=== PATIENT | male | born 1950 | race Caucasian/White ===

== ENCOUNTER → 2023-11-14 11:12 | Outpatient (REF) | payer MEDICARE, OTHER, SELFPAY | LOC: RAD 11:12 | PROVIDERS: ATTENDING PHYSICIAN Family Medicine | DX: S29.9XXA Unspecified injury of thorax, initial encounter (principal) | CPT/HCPCS: 71101 ==

== ENCOUNTER → 2024-03-31 07:10 | Outpatient (REF) | payer MEDICARE, OTHER, SELFPAY | LOC: DHCBC/DCA 07:10 | PROVIDERS: ATTENDING PHYSICIAN Internal Medicine Cardiovascular Disease; FAMILY PHYSICIAN Family Medicine | DX: R06.09 Other forms of dyspnea (principal); I51.7 Cardiomegaly; E11.65 Type 2 diabetes mellitus with hyperglycemia | CPT/HCPCS: 78452; 93017; A9500; J2785 ==

== ENCOUNTER → 2025-04-06 09:42 | Outpatient (REF) | payer MEDICARE, OTHER, SELFPAY | LOC: RAD 09:42 | PROVIDERS: ATTENDING PHYSICIAN Internal Medicine Cardiovascular Disease; FAMILY PHYSICIAN Family Medicine | DX: R94.39 Abnormal result of other cardiovascular function study (principal) | CPT/HCPCS: 75574; Q9967 ==

== ENCOUNTER → 2025-04-13 07:21 | Outpatient (REF) | payer MEDICARE, OTHER, SELFPAY | LOC: RCS 07:21 | PROVIDERS: ATTENDING PHYSICIAN Internal Medicine Cardiovascular Disease; FAMILY PHYSICIAN Family Medicine | DX: I10 Essential (primary) hypertension (principal); E78.5 Hyperlipidemia, unspecified; I51.7 Cardiomegaly | CPT/HCPCS: 93306 ==

== ENCOUNTER → 2025-04-22 14:51 | Outpatient (REF) | payer MEDICARE, OTHER, SELFPAY ==
[2025-04-22 15:39] LABS: Hematocrit 48.6 % (39.0-52.0); Hemoglobin 16.1 g/dL (13.0-18.0); Mean Corp Hgb Conc. 33.1 g/dL (33.0-37.0); Mean Corpuscular Volume 95.3 fL (80.0-94.0); Nucleated Red Blood Cells % 0 % (-); Platelet Count 227 10^3/uL (130-400); Red Cell Dist. Width 13.7 % (11.5-14.5)
[2025-04-22 16:00] LABS: ALT (SGPT) 29 U/L (0-50); AST (SGOT) 23 U/L (17-59); Albumin 4.3 g/dl (3.5-5.0); Alkaline Phosphatase 68 U/L (38-126); Blood Urea Nitrogen 23 mg/dl (9-20); Calcium 9.8 mg/dl (8.4-10.2); Carbon Dioxide 26 mmol/L (22-30); Chloride 108 mmol/L (98-107); Glucose 95 mg/dl (70-99); Potassium 4.6 mmol/L (3.5-5.1); Sodium 142 mmol/L (135-145); Total Protein 7.1 g/dl (6.3-8.2); eGFR > 60.00
== END ==
LOC: REG 14:51
PROVIDERS: ATTENDING PHYSICIAN Internal Medicine Cardiovascular Disease; FAMILY PHYSICIAN Family Medicine
DX: E11.40 Type 2 diabetes mellitus with diabetic neuropathy, unspecified (principal); I10 Essential (primary) hypertension; E78.00 Pure hypercholesterolemia, unspecified
CPT/HCPCS: 36415; 80053; 85025

== ENCOUNTER 2025-04-26 07:14 | Day surgery (SDC) | payer MEDICARE, OTHER, SELFPAY ==
[2025-04-26] VITALS (11 sets, daily range): BP systolic 108–141; BP diastolic 57–82; BMI 27.3
[2025-04-26 08:00] LABS: Glucose - Point of Care 158 mg/dl (70-99)
--- NOTE | 2025-04-26 16:05 | ITS.CL.CATH ---
[employer] - Catheterization
Cardiac Catheterization
Procedure Report:
LEFT HEART CATHETERIZATION
Date of Procedure: April 26, 2025
Referring: Dr. Ann Sosa
PROCEDURES:
1. Coronary angiography
INDICATION: Abnormal stress test with elevated coronary calcium score. Exertional dyspnea
ACCESS: Right radial artery, 6 Iranian sheath
HEMODYNAMICS : (mmHg)
AO (s/d) : 114/69
CORONARY FINDINGS
DOMINANCE: Right
LEFT MAIN: Short and unobstructed
LEFT ANTERIOR DESCENDING: The LAD arises normally from the left main running in the anterior interventricular groove there is an eccentric 95% stenosis in the proximal LAD with poststenotic dilation near the origin of a medium caliber first diagonal
branch. The LAD beyond the diagonal branch becomes a medium caliber vessel that is then found to be 100% occluded in the mid to distal vessel. The mid to distal LAD is noted to fill via well-developed right to left collaterals.
CIRCUMFLEX: The circumflex is a large-caliber nondominant vessel supplying a large OM1. The circumflex continues in the AV groove where tandem 80% and 50% stenoses are noted before the origin of a large posterolateral branch from the distal
circumflex.
RIGHT CORONARY ARTERY: The right coronary artery is a dominant vessel with a high anterior origin from the aorta. There is a 40% proximal stenosis and minor irregularities noted throughout the mid RCA. There is a 60-70% stenosis in the mid PDA
with the distal PDA being a sizable vessel and filling a large well-developed collateral to the apical LAD.
VENTRICULOGRAPHY: Not done
SEDATION: 25 minutes of procedural sedation was utilized. An independent biomedical service engineer was present to assist with and help manage the patient's level of consciousness and physiologic status.
RADIATION SUMMARY: Fluoro Time (min): 7.4, Dose (mGy): 767, DAP (Gy.cm2) : 51.5
Closure Device: TR band
CONCLUSIONS
1. Multivessel coronary artery disease as described above
RECOMMENDATIONS
1. Consult CT surgery
Copy to: Dr. Ann Sosa
== END 2025-04-26 14:30 | disposition home or self-care (01) ==
LOC: CATH 07:14
PROVIDERS: ATTENDING PHYSICIAN Internal Medicine Interventional Cardiology; FAMILY PHYSICIAN Family Medicine; OTHER PHYSICIAN Internal Medicine Cardiovascular Disease
DX: I25.10 Atherosclerotic heart disease of native coronary artery without angina pectoris (principal); R94.39 Abnormal result of other cardiovascular function study; R06.09 Other forms of dyspnea
CPT/HCPCS: 99152; 99153; 82962; 93454; C1894; Q9967

== ENCOUNTER 2025-05-18 04:44 | Inpatient (IN) | payer MEDICARE, OTHER, SELFPAY ==
[2025-05-13 08:33] VITALS: BMI 27.1
[2025-05-13 09:30] LABS: Hematocrit 48.1 % (39.0-52.0); Hemoglobin 16.2 g/dL (13.0-18.0); Mean Corp Hgb Conc. 33.7 g/dL (33.0-37.0); Mean Corpuscular Volume 93.4 fL (80.0-94.0); Nucleated Red Blood Cells % 0 % (-); Platelet Count 199 10^3/uL (130-400); Red Cell Dist. Width 13.2 % (11.5-14.5)
[2025-05-13 09:30] LABS: Urine Character Clear (Clear)
[2025-05-13 09:31] LABS: INR 1.03; PT 13.8 Sec (11.4-14.6)
[2025-05-13 09:56] LABS: ALT (SGPT) 43 U/L (0-50); AST (SGOT) 27 U/L (17-59); Albumin 4.5 g/dl (3.5-5.0); Alkaline Phosphatase 82 U/L (38-126); Blood Urea Nitrogen 20 mg/dl (9-20); Calcium 9.7 mg/dl (8.4-10.2); Carbon Dioxide 23 mmol/L (22-30); Chloride 109 mmol/L (98-107); Estimated Creatinine Clearance 117 ml/min; Glucose 142 mg/dl (70-99); Glycohemoglobin (HgbA1c) 8.6 % (4.0-5.6); Potassium 4.6 mmol/L (3.5-5.1); Sodium 142 mmol/L (135-145); Total Protein 7.6 g/dl (6.3-8.2); eGFR > 60.00
--- NOTE | 2025-05-13 10:06 | CM ---
Met with and Mrs. Brady in [facility]'s. He states prior to admission he resides with his spouse in a two story home with three steps to enter. He states he has a full flight of steps to get to bedroom. He states he has a full bathroom on each floor.
He states prior to admission he was independent with ambulation and adls. He states he does not have any DME in the home. He states he has a prescription plan with [facility] and uses mail order and [facility] when needed. His spouse states
she will be home to assist in his care if needed. The discharge plan is to return home with his spouse and a home visit by the Transitional Care Nurse when medically stable.
We reviewed pre-op and post-op routines. We reviewed the shower instructions. He has the soap, written instructions and the Cardiothoracic Surgery Educational Booklet. We reviewed restrictions including sternal precautions and driving
restrictions. We discussed a home visit by the Transitional Care Nurse. He is agreeable to a home visit. The plan is for CABG on Sunday, May 18, 2025.
[2025-05-18] VITALS (17 sets, daily range): BP systolic 73–155; BP diastolic 55–94; BMI 26.4
[2025-05-18] MEDS: LOPRESSOR 25 MG PO (05:25)
[2025-05-18] MEDS: BACTROBAN 2% OINTMENT 1 APPLIC NASAL ×2 (05:25→20:04)
[2025-05-18] MEDS: MAGNESIUM OXIDE 500 MG PO (05:25)
[2025-05-18] MEDS: PROTONIX 40 MG PO (05:25)
--- NOTE | 2025-05-18 06:32 | W.CVOR.SURPR ---
CVOR Surgeon Immed Pre Op
-
I have examined this patient prior to performance of the scheduled procedure.
The patient's condition is unchanged from the time of the dictated/written History and
Physical and the patient is able to undergo the scheduled procedure.
--- NOTE | 2025-05-18 06:40 | W.PN.UPDATE ---
Update Note
Progress Note Update
Pt's AM dose of Lopressor contraindicated and not given. HR 40's this AM
[2025-05-18 08:21] LABS: ACT+ - POC 129 Seconds (82-134)
[2025-05-18 08:31] LABS: Urine Character Clear (Clear)
[2025-05-18 09:08] LABS: Urine Squamous Cell 0-2 /LPF (Few)
[2025-05-18 09:11] LABS: Urine Red Blood Cell 0-2 /HPF (0-2); Urine White Cell 0-2 /HPF (0-5)
[2025-05-18 10:03] LABS: ACT+ - POC 633 Seconds (82-134)
[2025-05-18 10:27] LABS: B.E. - POC -2.6 mmol/L; Glucose - POC 148 mg/dl (70-99); HCO3 - POC 23 mmol/L (21-28); Hematocrit - POC 41 % PCV (42-52); Hemodilution- POC No; Hemoglobin Calculated - POC 13.8; Ionized Calcium - POC 1.18 mmol/L (1.15-1.33); Lactate - POC 0.92 mmol/L (0.36-0.75); O2 Saturation %Calculated-POC 99.8 % (94-98); PCO2 - POC 41 mmHg (35-48); PO2 - POC 223 mmHg (83-108); Potassium - POC 3.7 mmol/L (3.5-5.1); Sodium - POC 141 mmol/L (136-145); Specimen Type - POC Arterial; pH - POC 7.36 (7.35-7.45)
[2025-05-18 10:43] LABS: ACT+ - POC 647 Seconds (82-134)
[2025-05-18 11:16] LABS: B.E. - POC 1.6 mmol/L; Glucose - POC 133 mg/dl (70-99); HCO3 - POC 26 mmol/L (21-28); Hematocrit - POC 35 % PCV (42-52); Hemodilution- POC Yes; Hemoglobin Calculated - POC 11.8; Ionized Calcium - POC 1.01 mmol/L (1.15-1.33); Lactate - POC 0.54 mmol/L (0.36-0.75); O2 Saturation %Calculated-POC 100.0 % (94-98); PCO2 - POC 39 mmHg (35-48); PO2 - POC 366 mmHg (83-108); Potassium - POC 5.1 mmol/L (3.5-5.1); Sodium - POC 141 mmol/L (136-145); Specimen Type - POC Arterial; pH - POC 7.43 (7.35-7.45)
[2025-05-18 11:24] LABS: ACT+ - POC 469 Seconds (82-134)
--- NOTE | 2025-05-18 11:43 | CM ---
Chart reviewed. Patient is in the OR today. Patient is independent of ADLS, lives with his in a 2 [address], 3 [place], 0 DME. Plan is for the patient to return home with CT Transitional RN. CM to follow
[2025-05-18 11:44] LABS: B.E. - POC 1.4 mmol/L; Glucose - POC 154 mg/dl (70-99); HCO3 - POC 26 mmol/L (21-28); Hematocrit - POC 32 % PCV (42-52); Hemodilution- POC Yes; Hemoglobin Calculated - POC 10.8; Ionized Calcium - POC 1.07 mmol/L (1.15-1.33); Lactate - POC 0.61 mmol/L (0.36-0.75); O2 Saturation %Calculated-POC 100.0 % (94-98); PCO2 - POC 39 mmHg (35-48); PO2 - POC 360 mmHg (83-108); Potassium - POC 5.2 mmol/L (3.5-5.1); Sodium - POC 142 mmol/L (136-145); Specimen Type - POC Arterial; pH - POC 7.43 (7.35-7.45)
[2025-05-18 11:54] LABS: ACT+ - POC 570 Seconds (82-134)
[2025-05-18 12:36] LABS: B.E. - POC 0.3 mmol/L; Glucose - POC 166 mg/dl (70-99); HCO3 - POC 25 mmol/L (21-28); Hematocrit - POC 34 % PCV (42-52); Hemodilution- POC Yes; Hemoglobin Calculated - POC 11.5; Ionized Calcium - POC 1.08 mmol/L (1.15-1.33); Lactate - POC 1.18 mmol/L (0.36-0.75); O2 Saturation %Calculated-POC 99.9 % (94-98); PCO2 - POC 37 mmHg (35-48); PO2 - POC 267 mmHg (83-108); Potassium - POC 5.2 mmol/L (3.5-5.1); Sodium - POC 143 mmol/L (136-145); Specimen Type - POC Arterial; pH - POC 7.43 (7.35-7.45)
[2025-05-18 12:44] LABS: ACT+ - POC 126 Seconds (82-134)
[2025-05-18 13:10] LABS: B.E. - POC -0.9 mmol/L; Glucose - POC 186 mg/dl (70-99); HCO3 - POC 24 mmol/L (21-28); Hematocrit - POC 33 % PCV (42-52); Hemodilution- POC Yes; Hemoglobin Calculated - POC 11.3; Ionized Calcium - POC 1.31 mmol/L (1.15-1.33); Lactate - POC 1.19 mmol/L (0.36-0.75); O2 Saturation %Calculated-POC 99.8 % (94-98); PCO2 - POC 42 mmHg (35-48); PO2 - POC 233 mmHg (83-108); POC Comment POST; Potassium - POC 4.2 mmol/L (3.5-5.1); Sodium - POC 144 mmol/L (136-145); Specimen Type - POC Arterial; pH - POC 7.37 (7.35-7.45)
--- NOTE | 2025-05-18 13:17 | W.IMMPOSTOP ---
Addendum entered and electronically signed by Jaret Campoverde MD 05/18/25 14:44:
[id number]
Original Note:
Surgical Immed Post Op Note
-
CARDIAC SURGERY OPERATIVE NOTE:
Preoperative Dx:
MVCAD
Postoperative Dx:
Same
Procedures:
1) Median sternotomy
2) Takedown of TALIB
3) Endoscopic harvest/prep of RLE GSV; exploration of LLE GSV
4) CABG x 3 (TALIB to LAD, GSV to distal RPDA, GSV to LPLB)
5) ELAA
Surgeon:
Jaret Campoverde M.D.
Assistants:
Jovita Lemus - endoscopic GSV harvest/prep; director of first impressions; sternotomy closure
Lisa Bermudez P.A.-C. - first crusher during cannulation/graft to RPDA
Anesthesia:
Charles Almaraz M.D. and Minna RebolledoN.AHerve
Perfusion:
Pancho GarciaC.PHerve; XC: 80min, CPB: 120min
Findings:
TALIB was healthy conduit w/ brisk blood flow; ELD 2.5mm
GSV was healthy conduit w/ normal reynolds w/ slightly variable ELD 3.0-4.5mm
Apical LAD was visible under a thin layer of epicardial adipose; distal mid-LAD was under approximately 0.5cm adipose and more proximally took an intramyocardial course. Anastomosis performed at distal midpoint. Normal reynolds at this location, but
relatively diminutive size just larger than 1mm. Anastomosis performed over 1.0mm shunt and completed w/ 8-0 prolene. Good flow visually and on intraoperative transit-time flow probe assessment.
RPDA was visible on the epicardial surface. Anastomosis performed just distal to midpoint calcifications; healthy vessel at this location w/ ELD 3.0mm
LPLB was visible on the epicardial surface. Anastomosis performed at midpoint; healthy reynolds at this location w/ ELD 2.0mm
Very large PRISCILA w/ 'windsock' w/ minor 'chicken-wing' morphology - successfully occluded at its base.
Pre-BRUCE: LVEF 60-65% w/o RWMA, normal RV, mild MR w/ dilated LA and normal PRISCILA free of thrombus, grade III arch Ca++
Post-BRUCE: Unchanged function w/o RMWA, PRISCILA confirmed excluded
Implants:
Epicardial bipolar pacing wire x 1
CT x 4 (B/L pleural, inferior mediastinal, superior mediastinal)
Sternal wires x 7
Sternal 'X' plate w/ 8 - 14mm screws
Sternal 'Square' plate w/ 4 - 12mm screws
Transfusions:
None
Complications:
None
Condition:
70 V-paced (40s under); 101/60; CVP 12; 100%
GTTS: levophed 3, precedex 0.5, insulin 2
Stable/guarded to CVICU
CT w/o significant drainage intraoperatively
--- NOTE | 2025-05-18 13:54 | W.PN.UPDATE ---
Update Note
Progress Note Update
74 year old male was electively admitted 05/18/25 for CABG due to stable angina and 3VCAD
IV fluids: 1800
U.O.:� 800
Blood:� none
Wires:� bipolar V-wire
Drips: Levo @ 3, insulin, Precedex
�
NEURO: sedated, pupils +2mm B/L
RESP: #8OT @XXcm> 550/40%/14/5. Lungs clear B/L. 2 mediastinal (20cc on arrival) and R/L pleural (0cc on arrival) chest tubes to -20cm suction. Sanguineous drainage
CV: RRR +S1, S2, no S3, no�rub, no murmur. Aquacell to median sternotomy. RIJ w/Slik
ABD: round, soft, no BS
EXT: no edema, +2/4 DP pulses B/L, no femoral bruit, RLE JIM wrap intact; left radial A-line intact
: Jauregui with clear yellow urine
�
A/P: POD #0 s/p CABG x 3 (TALIB to LAD, GSV to distal RPDA, GSV to LPLB); ELAA
BRUCE: EF�60-65%
- wean and extubate
# CAD
- will require ASA, Plavix, statin
- hold BB, Amio as SB w/VVI pacing
�
# acute surgical blood loss anemia-expected
- trend CBC
�
# T2DM (A1C 8.6)
- insulin infusion x 48h
- consult to DM NEEDLE MAKER (on Toujeo, Humalog, MFM, Jardiance @ home)
�
# Hyperlipidemia
- resume�Lipitor 40mg/day
--- NOTE | 2025-05-18 13:56 | CON.INTV ---
Consultation
Consultation Request
Date/Time Consultation Requested: 05/18
Date/Time Consultation Performed: 05/18
Reason for Consultation: Critical care
Medical History
-
History of Present Illness:
History obtained from chart as patient currently intubated and sedated. 74-year-old male with history of hypertension, hypercholesterolemia, found to have multivessel coronary disease. Patient had noted progressive shortness of breath and was
found to have abnormal stress test. Echocardiogram showed EF 65%, insignificant valvular disease. He is now status post bypass surgery 05/18/25. We are asked to help from critical care standpoint 05/18/2025.
Presently patient appears to be comfortable. He is weaned down to 40% on volume-cycled ventilation. He is on low-dose norepinephrine, paced rhythm. Left lower extremity vein harvest with hematoma and bandage in place. Extremities cool, Iveth
warmer in place
.
PMH: Hypertension, hyperlipidemia, diabetes, history of diverticulosis, history of melanoma, neuropathy, right ankle fracture 2004, tonsillectomy, left knee surgery
Past Medical History
Past Medical History: None (See above)
Past Surgical History: None (See above)
Social History
Tobacco: Non-smoker
Alcohol: Occasional
Drug: None
Personal:
Living: With Family
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
Family History
Family History: Other (Father age 78, lung cancer, also with prostate cancer. Mother age 97. 1 sister and 3 children healthy)
Allergies / Home Medications
Allergies
Allergy/AdvReac Type Severity Reaction Status Date / Time
No Known Allergies Allergy Verified 05/11/25 12:05
Home Medications
�Medication �Instructions �Recorded �Confirmed �Last Taken �Type
Ageless Male 1 tab PO DAILY 04/26/25 05/18/25 1 Week Ago History
~05/11/25
1
Focus Factor 1 tab PO DAILY 04/26/25 05/18/25 1 Week Ago History
~05/11/25
1
aspirin 81 mg tablet 81 mg PO HS 04/26/25 05/18/25 1 Day Ago History
~05/17/25
81
atorvastatin 40 mg tablet 40 mg PO HS 04/26/25 05/18/25 1 Day Ago History
~05/17/25
80
coenzyme Q10 100 mg capsule 300 mg PO DAILY 04/26/25 05/18/25 1 Week Ago History
(CoQ-10) ~05/11/25
1
empagliflozin 25 mg tablet 25 mg PO DAILY 04/26/25 05/18/25 2 Days Ago History
(Jardiance) ~05/16/25
25
insulin glargine U-300 conc 300 45 unit SC BID 04/26/25 05/18/25 1 Day Ago History
unit/mL (1.5 mL) subcutaneous pen ~05/17/25
(Toujeo SoloStar U-300 Insulin) 36 unit
lisinopril 40 mg tablet 40 mg PO HS 04/26/25 05/18/25 05/15/25 20:00 History
40
metformin 1,000 mg tablet 1,000 mg PO BID 04/26/25 05/18/25 1 Day Ago History
~05/17/25
1000
metoprolol succinate 50 mg 100 mg PO HS 04/26/25 05/18/25 05/17/25 20:00 History
tablet,extended release 24 hr 50
glucosamine sulf dipot 1 cap PO DAILY 05/11/25 05/18/25 1 Week Ago History
chlr,msm,chond 550 mg-C 30 mg-javi ~05/11/25
1 mg capsule (Glucosamine 1
Chondroitin)
insulin lispro 100 unit/mL 1 sliding scale dose SC TID 05/11/25 05/18/25 1 Day Ago History
subcutaneous solution (Humalog ~05/17/25
U-100 Insulin) 20 unit
Review of Systems
-
Unable to Obtain full review of systems at this time due to: Acuity and Patient Intubation
Vitals / Labs / Diagnostic Testing
Vital Signs
Temp Pulse Resp BP Pulse Ox
97.7 F 55 18 137/84 98
05/18/25 04:56 05/18/25 05:25 05/18/25 04:56 05/18/25 05:25 05/18/25 05:27
Diagnostic Testing:
Physical Exam
-
HEENT: Normocephalic, Anicteric and Other (IJ, A-line, chest tube)
Cardiovascular: S1/S2, Regular Rhythm, Murmur (n), Rub (n), Peripheral Edema (n) and Other (Left lower extremity hematoma at site of vein harvest, dressed. Right lower extremity bandage)
Respiratory: Wheeze (n), Rales (n) and Rhonchi (n)
GI: Soft, Non Distended and Non Tender
Neurology: Other (Sedated, intubated) and Other (Chest tube)
Skin: Good Color
General: Comfortable
Assessment
-
74-year-old male with history of hypertension, hyperlipidemia, diabetes with progressive shortness of breath found to have multivessel coronary disease. Patient is status post CABG x 3 05/18/2025
S/p CABG x 3 on 05/18/25
Multivessel coronary disease per catheterization
Normal EF
Progressive shortness of breath, abnormal stress test
Conditions present prior to admission
Hypertension/hyperlipidemia
Diabetes
History of diverticulosis
History of melanoma
Family history of lung cancer, prostate cancer, colon cancer
Plan/recommendations
At this time, patient is critically ill but remains stable
Postoperative chest x-ray unremarkable, chest tube in place
Remains on volume-cycled ventilation, FiO2 weaned down to 40%
Left lower extremity hematoma noted at vein harvest site, bandage in place
Postoperative EKG with paced rhythm
Moving forward
Continue with management per CT surgery
Wean ventilator per protocol, anticipate extubation later today
Hemoglobin 12.7, follow-up
Minimal drainage per chest tube
Remains on norepinephrine, wean per protocol
Follow left lower extremity hematoma. Extremities cool at this time, hugger in place
Follow pulses. CT surgery following
Follow blood sugars, Remains on insulin drip, Precedex
Reviewed with critical care nursing
TCCT 32 min
[2025-05-18] MEDS: NSS 500 IV (14:00)
[2025-05-18 14:01] LABS: Glucose - Point of Care 173 mg/dl (70-99)
[2025-05-18] MEDS: DILAUDID 0.5 MG IV (14:07)
--- NOTE | 2025-05-18 14:15 | PTCARENOTE ---
pt from CVOR @ 1400. pt intubated, sedated. ETT size 8.0, 23cm at the lip. Vent settings SIMV 14/550/5/5/40%. R IJ cordis w/ SLIC. L radial a-line. all lines leveled, zeroed, flushed. pt 100% paced w/ temp epicardial v-wires. settings VVI 70/10/2.
CT x4 (mediastinal x2, R & L pleural) to -20cm wall suction, draining sanguineous drainage. abd s/n, hypoactive BS. rivera catheter draining clear, yellow colored urine. MSI w/ dressing CDI. 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 R knee incision w/ junior
wrap. L knee incision w/ hematoma. PA wrapped L knee w/ junior wrap. see worklist for complete nursing assessment, interventions, gtt titrations, VS, and I&Os.
[2025-05-18 14:26] LABS: Hematocrit 37.5 % (39.0-52.0); Hemoglobin 12.7 g/dL (13.0-18.0); Platelet Count 156 10^3/uL (130-400)
[2025-05-18 14:36] LABS: B.E. -2.9 mmol/L; HCO3 22.6 mmol/L (21-28); O2 Saturation % 99.4 % (94-98); PCO2 41 mmHg (35-48); PO2 108 mmHg (83-108); Potassium 4.3 mMOL/L (3.5-5.1); Sodium 136 mMOL/L (136-145)
[2025-05-18 14:36] LABS: INR 1.27; PT 16.4 Sec (11.4-14.6)
[2025-05-18 14:37] LABS: APTT 31.3 Sec (23.4-35.0)
[2025-05-18 14:39] LABS: Blood Urea Nitrogen 16 mg/dl (9-20); Estimated Creatinine Clearance 117 ml/min; Glucose 168 mg/dl (70-99); Magnesium 2.3 mg/dl (1.6-2.3)
[2025-05-18] MEDS: LR 250 ML IV ×3 (14:42→17:33)
[2025-05-18] MEDS: CALCIUM GLUCONATE 100 IV (14:42)
--- NOTE | 2025-05-18 14:55 | PTCARENOTE ---
pacer not capturing. CT INTERMODAL CUSTOMER SERVICE in to adjust settings. temp pacer set to VVI 70/12/0.8
[2025-05-18 15:12] LABS: Glucose - Point of Care 151 mg/dl (70-99)
[2025-05-18] MEDS: ZOFRAN 4 MG IV (15:30)
[2025-05-18] MEDS: ANCEF 10 IV ×2 (15:34)
[2025-05-18] MEDS: NEURONTIN PO ×2 (15:34→15:37)
[2025-05-18] MEDS: NOVOLOG FLEXPEN SC ×2 (15:35→15:38)
[2025-05-18] MEDS: TYLENOL PO (15:35)
[2025-05-18] MEDS: PACERONE PO (15:37)
[2025-05-18] MEDS: OFIRMEV 100 IV (15:48)
[2025-05-18 16:05] LABS: Glucose - Point of Care 156 mg/dl (70-99)
--- NOTE | 2025-05-18 16:05 | PTCARENOTE ---
Dr Campoverde at bedside. L leg unwrapped. L knee incision CDI. hematoma soft. RT placed pt on CPAP/PSV.
--- NOTE | 2025-05-18 16:29 | W.PN.CARDCBS ---
Addendum entered and electronically signed by Daniel Jj DO 05/18/25 17:33:
I saw and examined the patient.
The Mortuary Technician's note was reviewed and I agree with the note.
Comment:
Plan:
Cont post op care
Stable cv status
Vpacing
Wean pressors as able.
Off vent
Discussed with nursing.
Original Note:
Today's Communication / Plan
-
Continue postoperative care
Follow rub
Follow rhythm
Impression / Plan
-
Primary Automotive Diagnostic Technician: Dr. Ann Sosa
Assessment:
MV CAD s/p CABG x3 TALIB to LAD, GSV to distal RPDA, GSV to LPLB, PRISCILA clip 05/18/25
Hypertension
Hyperlipidemia
Type 2 diabetes
Heterozygous hemochromatosis
History of LVH, resolved
Echo 04/13/2025: EF 65 to 70%, stage II diastolic dysfunction, mild MAC, trace MR, PAP 29 mmHg
Plan:
- Status post CABG x3 TALIB to LAD, GSV to distal RPDA, GSV to LPLB, PRISCILA clip 05/18/25
- He is currently been weaned to CPAP settings. Hopefully for extubation soon if tolerates.
- On levo at 2, BPs presently on low side, follow
- V-paced rhythm on review of EKG and tele. he was bradycardic in 40s this morning preop and was junctional intraop. will follow rhythm on tele
- echo with preserved EF preop
- with rub on exam, follow
- Was on Toprol 100 mg nightly and lisinopril 40 mg nightly prior to admission
- d/w nursing, CT surgery SYRUP MAKER. d/w at bedside
Progress Note - Automotive Diagnostic Technician
Subjective
Date of Service: May 18, 2025
Awakening postsurgically.
Objective
Labs:
05/18/25 13:59
Labs
Hgb 12.7 g/dL (13.0-18.0) L D 05/18/25 13:59
Hct 37.5 % (39.0-52.0) L 05/18/25 13:59
Plt Count 156 10^3/uL (130-400) D 05/18/25 13:59
PT 16.4 Sec (11.4-14.6) H 05/18/25 13:59
INR 1.27 05/18/25 13:59
APTT 31.3 Sec (23.4-35.0) 05/18/25 13:59
Sodium 142 mmol/L (135-145) 05/13/25 08:53
Potassium 4.6 mmol/L (3.5-5.1) 05/13/25 08:53
BUN 16 mg/dl (9-20) 05/18/25 13:59
Creatinine 0.7 mg/dL (0.7-1.3) 05/18/25 13:59
Glucose 168 mg/dl (70-99) H 05/18/25 13:59
Vital Signs and I&O:
Vital Signs
Temp Pulse Resp BP Pulse Ox
99 F 69 13 107/74 98
05/18/25 16:00 05/18/25 16:15 05/18/25 16:15 05/18/25 16:00 05/18/25 16:15
Vital Signs
Temp Pulse Resp BP Pulse Ox
99 F 69 13 107/74 98
05/18/25 16:00 05/18/25 16:15 05/18/25 16:15 05/18/25 16:00 05/18/25 16:15
Intake & Output
05/16/25 05/17/25 05/18/25 05/19/25
07:59 07:59 07:59 07:59
Intake Total 822.5 / 822.5
Output Total 600 / 600
Balance 222.5 / 222.5
Physical Exam
Physical Exam
GEN: No distress, awake, but groggy. intubated
HEENT: supple, mmm
LUNGS: CTA B/L, no wheezes/rales
CV: Reg, S1/S2, no murmur, + rub
ABD: soft, NT/ND
EXT: No cyanosis, clubbing, edema
NEURO: Nods head yes or no appropriately to questions
SKIN: Warm, pin, dry. No rash. Sternotomy dressing clean dry and intact. Chest tubes in place
[2025-05-18 16:43] LABS: B.E. - POC -2.2 mmol/L; Blood Urea Nitrogen - POC 15 mg/dl (3-120); Chloride - POC 111 mmol/L (96-111); Creatinine - POC 0.83 mg/dl (0.3-1.0); Glucose - POC 207 mg/dl (70-99); HCO3 - POC 24 mmol/L (21-28); Hematocrit - POC 40 % PCV (42-52); Hemodilution- POC No; Hemoglobin Calculated - POC 13.6; Ionized Calcium - POC 1.32 mmol/L (1.15-1.33); Lactate - POC 1.36 mmol/L (0.36-0.75); O2 Saturation %Calculated-POC 98.1 % (94-98); PCO2 - POC 43 mmHg (35-48); PO2 - POC 112 mmHg (83-108); Potassium - POC 4.8 mmol/L (3.5-5.1); Sodium - POC 143 mmol/L (136-145); Specimen Type - POC Arterial; pH - POC 7.34 (7.35-7.45)
--- NOTE | 2025-05-18 17:01 | RESPNOTE ---
16:50 patient extubated to 6L nasal cannula 98%
[2025-05-18 17:13] LABS: Glucose - Point of Care 178 mg/dl (70-99)
[2025-05-18 18:12] LABS: Glucose - Point of Care 176 mg/dl (70-99)
[2025-05-18 18:33] LABS: Hematocrit 39.2 % (39.0-52.0); Hemoglobin 13.3 g/dL (13.0-18.0); Platelet Count 192 10^3/uL (130-400)
[2025-05-18] MEDS: SENOKOT-S 1 TABLET PO (20:03)
[2025-05-18] MEDS: LOW STRENGTH ASPIRIN 81 MG PO (20:03)
[2025-05-18] MEDS: ANCEF 5 IV (20:03)
[2025-05-18 20:30] LABS: Glucose - Point of Care 160 mg/dl (70-99)
[2025-05-18] MEDS: ALBUMIN 5% 250 IV (20:42)
--- NOTE | 2025-05-18 21:14 | PTCARENOTE ---
Assumed care of patient at 1900. Patient found resting in bed at time of assessment. Patient is AOx4, follows commands appropriately, moves all extremities. Lung sounds are diminished at the bases, saO2 100% on 6L via NC, IS 500, patient has CTx4:
R/L pleural to one atrium and medsx2 to one atrium. Heart sounds are audible, a rub is present on auscultation, patient is 75-100% vpaced on the monitor VVI 70/12/0.8. Patient has normal palpable pulses and no observable edema. Patient has
hypoactive BS in all four quadrants and a rivera is present draining clear yellow urine. There is a sternal incision with aquacell dressing that is CDI, R groin puncture approx with surg adhesive TRACIE, and RLE incision with JIM wrap CDI. Patient also
has LLE incision approx with surg adhesive TRACIE with a hematoma present over site that is soft nontender. There is a R IJ cordis with slic receiving KVO and Levo@5, L radial clifford, and L wrist 18G receiving insulin col 2. No c/o pain. VSS. Call shirley
within reach.
[2025-05-18 22:03] LABS: Glucose - Point of Care 141 mg/dl (70-99)
[2025-05-18] MEDS: LIPITOR 40 MG PO (22:04)
[2025-05-18] MEDS: TYLENOL 1000 MG PO (22:06)
[2025-05-18] MEDS: NEURONTIN 100 MG PO (22:06)
[2025-05-18 23:04] LABS: Glucose - Point of Care 153 mg/dl (70-99)
[2025-05-19] VITALS (28 sets, daily range): BP systolic 82–133; BP diastolic 49–77; PULSE 59; O2SAT 95–96; BMI 26.6
[2025-05-19 00:04] LABS: Glucose - Point of Care 139 mg/dl (70-99)
[2025-05-19 01:06] LABS: Glucose - Point of Care 137 mg/dl (70-99)
--- NOTE | 2025-05-19 01:07 | PTCARENOTE ---
Patient reassessed. 5% albumin administered per CT PA. Levo tapered to 3. O2 weaned to 2L. Temporary PM settings adjusted by CT PA rate lowered to 40. Patient's BP stable despite sinus bradycardia. All other VSS. Call shirley within reach.
[2025-05-19] MEDS: LEVOPHED 250 IV (01:14)
[2025-05-19 02:08] LABS: Glucose - Point of Care 156 mg/dl (70-99)
--- NOTE | 2025-05-19 03:04 | W.PN.CT ---
Today's Communication / Plan
-
-pod #1
-no issues overnight
-sinus nathalia high 40s-low 50s overnight. BP was better in sinus nathalia, rather than v-paced
-s/p 1 L of LR and 250 Albumin
-drips: insulin only. Levo is off
-CT outputs: 2 meds 140/310, 2 pleur 140/215 in 12 /24 hrs
-holding BB and Amio d/t bradycardia
-d/c slic and a-line
-d/c Jauregui
-continue insulin
-encourage IS, OOB
Assessment / Plan
-
- mv-CAD - s/p CABG x 3 (ATLIB to LAD, GSV to distal RPDA, GSV to LPLB); ELAA by Dr. Campoverde on 05/18/25, pod #1
- Pre-BRUCE: LVEF 60%-65% w/o RWMA, normal RV, mild MR w/ dilated LA and normal PRISCILA free of thrombus, grade III arch Ca++
- Post-BRUCE: Unchanged function w/o RMWA, PRISCILA confirmed excluded.
- Hypertension
- Hyperlipidemia
- Type 2 diabetes
- Heterozygous hemochromatosis
- History of LVH, resolved
- Preop bradycardia, hr mid 40s
- Echo 04/13/2025: EF 65 to 70%, stage II diastolic dysfunction, mild MAC, trace MR, PAP 29 mmHg
- Acute postop blood loss anemia
- Acute postop suspected pericarditis/+rub
- Acute postop atelectasis/pulmonary insufficiency
- Acute postop bradycardia/junctional rhythm
Discussed patient care with: Nursing and Care Team
Subjective
-
Date of Service: May 19, 2025
Objective Data
-
PT 16.4 Sec (11.4-14.6) H 05/18/25 13:59
INR 1.27 05/18/25 13:59
APTT 31.3 Sec (23.4-35.0) 05/18/25 13:59
Vital Signs
Vital Signs
Temp Pulse Resp BP Pulse Ox
98.7 F 49 18 125/58 95
05/19/25 03:00 05/19/25 03:00 05/19/25 03:00 05/19/25 03:00 05/19/25 03:00
CT Intake/Output/Weight
05/18/25 05/18/25 05/19/25
06:59 18:59 06:59
Intake Total 1408.0 / 2000.9 592.9 / 2000.9
Output Total 765 / 1295 530 / 1295
Balance 643.0 / 705.9 62.9 / 705.9
SaO2: 95
Physical Exam
-
General: Awake and AOx3
Cardiovascular: Regular rate & rhythm, No Murmurs and Rub
Respiratory: Decreased Breath Sounds
Sternum: Stable
Incision: Clean, Dry and Intact
Extremities: No Edema (trace edema b/l)
Abdomen: soft, nontender, nondistended, + decreased bowel sounds
Data Reviewed
-
Lab Results: Results Reviewed
Medications: Active Meds Reviewed
Chest X-Ray: Report Reviewed and Image Reviewed
ECG: Report Reviewed and Image Reviewed
[2025-05-19 03:43] LABS: Hematocrit 35.6 % (39.0-52.0); Hemoglobin 11.8 g/dL (13.0-18.0); Mean Corp Hgb Conc. 33.1 g/dL (33.0-37.0); Mean Corpuscular Volume 94.9 fL (80.0-94.0); Platelet Count 155 10^3/uL (130-400); Red Cell Dist. Width 13.2 % (11.5-14.5)
[2025-05-19 04:05] LABS: Blood Urea Nitrogen 20 mg/dl (9-20); Calcium 8.7 mg/dl (8.4-10.2); Carbon Dioxide 24 mmol/L (22-30); Chloride 111 mmol/L (98-107); Estimated Creatinine Clearance 117 ml/min; Glucose 130 mg/dl (70-99); Magnesium 2.0 mg/dl (1.6-2.3); Potassium 4.4 mmol/L (3.5-5.1); Sodium 139 mmol/L (135-145); eGFR > 60.00
[2025-05-19 04:14] LABS: Glucose - Point of Care 116 mg/dl (70-99)
[2025-05-19] MEDS: ANCEF 5 IV ×2 (04:17→13:37)
[2025-05-19] MEDS: ROXICODONE 5 MG PO (04:17)
[2025-05-19] MEDS: NOVOLIN R INSULIN INFUSION 100 IV (04:50)
[2025-05-19 06:23] LABS: Glucose - Point of Care 99 mg/dl (70-99)
[2025-05-19] MEDS: TYLENOL 1000 MG PO ×3 (06:55→21:09)
--- NOTE | 2025-05-19 07:18 | W.PN.INTV ---
Today's Communication / Plan
Recommendations
Incentive spirometry, pain control
Remains on insulin drip
pressors being weaned
Assessment
-
74-year-old male with history of hypertension, hyperlipidemia, diabetes with progressive shortness of breath found to have multivessel coronary disease. Patient is status post CABG x 3 05/18/2025
S/p CABG x 3 on 05/18/25
Multivessel coronary disease per catheterization
Normal EF
Progressive shortness of breath, abnormal stress test
Conditions present prior to admission
Hypertension/hyperlipidemia
Diabetes
History of diverticulosis
History of melanoma
Family history of lung cancer, prostate cancer, colon cancer
Plan/recommendations
At this time, patient is doing well, sitting in chair, comfortable
Remains on insulin drip, off pressors
Chest tube output noted
Mild bradycardia noted
Chest x-ray today without acute findings
Beta-juaquin and amiodarone held due to bradycardia
Moving forward
Continue with management per CT surgery
Hemoglobin 11.8, stable
Chest tube management per CT surgery
Remains on norepinephrine, being weaned
Follow left lower extremity hematoma, improved on today's exam
Follow blood sugars, Remains on insulin drip, being weaned
Incentive spirometry, pain control
Reviewed with critical care nursing
Subjective Dataa
Subjective Data
Date of Service:
Date of Service: May 19, 2025
Subjective:
Patient sitting in chair, appears comfortable. Extubated yesterday without difficulty. Mild incisional discomfort but otherwise denies nausea, abdominal pain
Objective Data
Data Reviewed
Vital Signs / I&O / Oxygen:
Vital Signs
Temp Pulse Resp BP Pulse Ox
98.5 F 68 22 104/56 97
05/19/25 06:00 05/19/25 06:50 05/19/25 06:50 05/19/25 06:00 05/19/25 06:50
Intake and Output
05/18/25 05/19/25 05/20/25
06:59 06:59 06:59
Intake Total 2070.4 / 0.4
Output Total 1470 / 1470
Balance 600.4 / 600.4
SaO2 [CPAP/PSV] 99
SaO2 [SIMV] 98
SaO2 97
Nasal Cannula flow liters per 6
minute
Physical Exam
General: Comfortable
HEENT: Normocephalic and Anicteric
Cardiovascular: S1-S2, Regular Rhythm, Murmur (n) and Rub (n)
Respiratory: Wheeze (n), Crackles (n), Rhonchi (n) and Chest Tube
GI: Soft, Non Distended and Non Tender
Neurology: Awake and Alert
Skin: Cyanosis (n), Rash (n) and Other (Left lower extremity incision with decreased swelling)
Labs/Micro/Reports
Lab Data
05/19/25 03:08
05/19/25 03:08
Laboratory Results
05/18/25 05/18/25
13:59 14:27
PT 16.4 H
INR 1.27
APTT 31.3
pH Cancelled 7.35
pCO2 Cancelled 41
pO2 Cancelled 108
HCO3 Cancelled 22.6
O2 Delivery Level Cancelled Not Reportable
--- NOTE | 2025-05-19 07:26 | PTCARENOTE ---
Patient reassessed. SB on the monitor. AM labs obtained. AM EKG obtained. Hygiene care provided. Patient delined. Jauregui removed. OOB to chair. Call shirley within reach.
[2025-05-19] MEDS: SENOKOT-S 1 TABLET PO ×2 (07:46→20:45)
[2025-05-19] MEDS: PLAVIX 75 MG PO (07:46)
[2025-05-19] MEDS: NEURONTIN 100 MG PO ×3 (07:47→21:09)
[2025-05-19] MEDS: LOW STRENGTH ASPIRIN 81 MG PO (07:47)
[2025-05-19] MEDS: MAGNESIUM OXIDE 400 MG PO ×2 (07:47→20:45)
[2025-05-19] MEDS: BACTROBAN 2% OINTMENT 1 APPLIC NASAL ×2 (07:47→20:45)
[2025-05-19] MEDS: LIDOCAINE 4% PATCH 1 PATCH TOPICAL (07:47)
[2025-05-19] MEDS: PROTONIX 40 MG PO (07:47)
[2025-05-19] MEDS: TORADOL 15 MG IV ×3 (07:57→23:06)
--- NOTE | 2025-05-19 07:58 | W.PN.ANS.POP ---
Anesthesia Post Operative
- Anesthesia Post Op Note
Vital Signs Stable-See Nursing Note: Yes
Airway Patent: Yes
Adequate Pain Control: Yes
Change in Mental Status: No
Current Postoperative Nausea & Vomiting: No
Anesthesia Complications: No
General Anesthetic Recall: No
Unplanned Admission: No
Post Op Hydration Adequate: Yes
[2025-05-19 08:10] LABS: Glucose - Point of Care 189 mg/dl (70-99)
--- NOTE | 2025-05-19 08:15 | W.PN.CARDCBS ---
Addendum entered and electronically signed by John Braxton MD 05/19/25 09:53:
I saw and examined the patient.
The Bond Clerk's note was reviewed and I agree with the note.
Comment:
GEN: No distress, awake, Ox3
HEENT: supple, anicteric, mmm
LUNGS: CTA, no wheezes/rales
CV: Reg, S1/S2, 1/6 syst LSB, + rub
ABD: soft, BS+, NT/ND
EXT: No edema
NEURO: Gross non-focal
SKIN: sternotomy
Plan:
EKG with diffuse ST elevations in lateral leads and anterolateral leads. There is also some MN depression and suspect pericarditis.
Patient has symptoms worse with inspiration suggestive of possible inflammatory pericarditis.
Will check echocardiogram. Could consider colchicine.
Had junctional rhythm initially postoperatively. Holding amiodarone and metoprolol but likely can restart them over next 24 hours.
Hemoglobin 11.8
Original Note:
Today's Communication / Plan
-
repeat EKG now. suspect pericarditis however low threshold to check echo
follow rhythm
continue post op care
Impression / Plan
-
Primary Power Station Operator: Dr. Ann Sosa
Assessment:
MV CAD s/p CABG x3 TALIB to LAD, GSV to distal RPDA, GSV to LPLB, PRISCILA clip 05/18/25
Hypertension
Hyperlipidemia
Type 2 diabetes
Heterozygous hemochromatosis
History of LVH, resolved
Echo 04/13/2025: EF 65 to 70%, stage II diastolic dysfunction, mild MAC, trace MR, PAP 29 mmHg
Plan:
-Status post CABG x3 TALIB to LAD, GSV to distal RPDA, GSV to LPLB, PRISCILA clip 05/18/25
-extubated last evening. wean supp O2
-EKG this AM SR with evidence of lateral ST elevation, possible pericarditis, but most pronounced in lateral leads. patient reports chest discomfort particularly with deep breaths. repeat EKG now. would have low threshold to check echo. d/w CT
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
-was junctional intraop and was initially paced on coming out of OR. follow rhythm
-had significant rub 05/18, improved today
-echo with preserved EF preop
-was on Toprol 100 mg nightly and lisinopril 40 mg nightly prior to admission
-d/w nursing
Progress Note - Power Station Operator
Subjective
Date of Service: May 19, 2025
Reports postoperative pain, worst with taking deep breath in
Objective
Labs:
05/19/25 03:08
05/19/25 03:08
Labs
Hgb 11.8 g/dL (13.0-18.0) L 05/19/25 03:08
Hct 35.6 % (39.0-52.0) L 05/19/25 03:08
Plt Count 155 10^3/uL (130-400) 05/19/25 03:08
PT 16.4 Sec (11.4-14.6) H 05/18/25 13:59
INR 1.27 05/18/25 13:59
APTT 31.3 Sec (23.4-35.0) 05/18/25 13:59
Sodium 139 mmol/L (135-145) 05/19/25 03:08
Potassium 4.4 mmol/L (3.5-5.1) 05/19/25 03:08
BUN 20 mg/dl (9-20) 05/19/25 03:08
Creatinine 0.7 mg/dL (0.7-1.3) 05/19/25 03:08
Glucose 130 mg/dl (70-99) H 05/19/25 03:08
Vital Signs and I&O:
Vital Signs
Temp Pulse Resp BP Pulse Ox
98.5 F 62 26 113/73 95
05/19/25 07:40 05/19/25 08:00 05/19/25 08:00 05/19/25 08:00 05/19/25 08:00
Vital Signs
Temp Pulse Resp BP Pulse Ox
98.5 F 62 26 113/73 95
05/19/25 07:40 05/19/25 08:00 05/19/25 08:00 05/19/25 08:00 05/19/25 08:00
Intake & Output
05/17/25 05/18/25 05/19/25 05/20/25
07:59 07:59 07:59 07:59
Intake Total 2081.5 / 2081.5
Output Total 1620 / 1620
Balance 461.5 / 461.5
Physical Exam
Physical Exam
GEN: No distress, awake, alert, oriented x3. sitting in chair. on supp O2
HEENT: supple, anicteric, mmm, eomi
LUNGS: CTA B/L, no wheezes/rales
CV: Reg, S1/S2, no murmur
ABD: soft, NT/ND
EXT: No cyanosis, clubbing. Trace edema of B/L LE
NEURO: Gross non-focal
SKIN: Warm, pink, dry. No rash. CTs in place. Sternotomy dressing c/d/i.
[2025-05-19 09:15] LABS: Glucose - Point of Care 167 mg/dl (70-99)
[2025-05-19] MEDS: NOVOLOG FLEXPEN 4 UNITS SC ×3 (09:28→18:05)
--- NOTE | 2025-05-19 09:45 | PTCARENOTE ---
Patient received from table games shift manager RN; AAOx3, responds spontaneously to RN and follows commands; Neuropathy present in B/L feet; VSS; NSR with frequent PAC's and PVC's on monitor; Friction rub present; Epicardial V wire present with temporary
pacemaker settings VVI 40/12/0.8; +1 right knee edema present; +1 DP and radial pulses present; Lungs diminished at bases; Shallow respirations; IS 1250 ml; Occasional, non-productive cough; Chest tubes x4 connected to -20 cm wall suction draining
serosanguineous drainage - no air leak, tidaling, or crepitus noted; Poor appetite and hypoactive BS; Jauregui catheter removed by prior RN - patient still due to void; Surgical sites intact; RIJ Cordis with KVO and insulin infusing - see nursing
flowsheets for further details; EKG repeated and echocardiogram ordered due to ST elevation this AM; See nursing documentation for further information
--- NOTE | 2025-05-19 10:29 | PN.DE.MGMTRT ---
Insulin Management
- -
05/19/2025 Diabetes Management Consult
Patient admitted 05/18 for CABG x 3. PMH Diabetes, HTN, diverticulosis, mitral valve prolapse, LVH, HLD, malig. melanoma, cataracts, neuropathy. Prior to admission was taking Toujeo 45 units BID, humalog ss TID, Jardiance 25 mg daily and metformin
1000 mg BID. A1C on admission 8.6%, cr today .7, eGFR > 60.
Patient is awake alert and oriented, sitting up in bed able to discuss diabetes care. Patient states he has had diabetes ~ 6 or more years. Patient states he follows with his primary doctor, Risa, for diabetes care.
POD 1 patient receiving critical care glycemic protocol requiring up to 5 units of insulin per hour. Will continue insulin infusion today and if appropriate will transition to home regimen in AM.
Discussed with nurse.
Will follow.
Diabetes History
- -
Type of Diabetes: 2 requiring insulin
Pre-Admission Diabetes Regimen
05/18/25 05/19/25
13:59 03:08
Creatinine 0.7 0.7
Lab Results
Hemoglobin A1c 8.6 % (4.0-5.6) H 05/13/25 08:53
Insulin Pump Settings
IP Diabetes Regimen
05/18/25 05/18/25 05/18/25
13:59 15:08 16:04
Glucose 168 H
POC Glucose 173 H 151 H 156 H
05/18/25 05/18/25 05/18/25
17:11 18:07 20:19
Glucose
POC Glucose 178 H 176 H 160 H
05/18/25 05/18/25 05/19/25
21:58 23:02 00:00
Glucose
POC Glucose 141 H 153 H 139 H
05/19/25 05/19/25 05/19/25
01:03 02:06 03:08
Glucose 130 H
POC Glucose 137 H 156 H
05/19/25 05/19/25 05/19/25
04:11 06:18 08:03
Glucose
POC Glucose 116 H 99 189 H
05/19/25
09:14
Glucose
POC Glucose 167 H
Patient Education
--- NOTE | 2025-05-19 10:52 | CM ---
Chart reviewed. Patient lying in bed, at bedside. Patient is independent of ADLS, lives with his in a [address], [facility] [place]. 0 DME. Plan is for the patient to return home with CT Transitional RN. CM to follow
[2025-05-19] MEDS: COLCHICINE 0.3 MG PO (11:00)
[2025-05-19 11:05] LABS: Glucose - Point of Care 179 mg/dl (70-99)
[2025-05-19 13:18] LABS: Glucose - Point of Care 146 mg/dl (70-99)
[2025-05-19] MEDS: NSS IV (13:34)
--- NOTE | 2025-05-19 13:48 | PTCARENOTE ---
Patient ambulating with RN multiple times in room; PO Colchicine started; Patient still with no urge to urinate at this point; Patient resting comfortably in bed
[2025-05-19 15:17] LABS: Glucose - Point of Care 103 mg/dl (70-99)
[2025-05-19 17:01] LABS: Glucose - Point of Care 95 mg/dl (70-99)
[2025-05-19] MEDS: PACERONE 200 MG PO ×2 (18:05→21:11)
--- NOTE | 2025-05-19 18:14 | PTCARENOTE ---
Patient bladder scanned for 258 ml this afternoon - able to urinate 275 ml of rony, clear urine; Patient ambulating in hallways with RN; Patient using incentive spirometer regularly, IS 2000 ml; Patient eating chair at this time
[2025-05-19 19:06] LABS: Glucose - Point of Care 120 mg/dl (70-99)
--- NOTE | 2025-05-19 19:10 | PTCARENOTE ---
Patient received from RN @ 1900. Patient sitting in chair w/ call shirley in reach. AOx3. SR w/ frequent PAC's on monitor. BP 126/61 HR 71. Heart sounds audible w/ friction rub. V-wires set to VVI 40/12/0.8. Radial and pedal pulses present.
Left knee +1 edema. Lungs diminished in bases bilaterally. IS 1500. POX 92% RA. 2x mediastinal and R/L pleural chest tube set to -20 suction draining serosanguineous fluid. No crepitus tidaling or air leak noted. Hypoactive bowel sounds. Left
knee incision well approximated SENIOR MANAGER ASSET PROTECTION. Right knee incision well approximated SENIOR MANAGER ASSET PROTECTION. Right groin well approximated SENIOR MANAGER ASSET PROTECTION. Sternal dressing w/ small old drainage. RIJ cordis intact. Right PIV patent and intact. Insulin infusing per glycemic protocol.
[2025-05-19] MEDS: LOPRESSOR 12.5 MG PO (20:44)
[2025-05-19] MEDS: REMOVE LIDOCAINE PATCH 1 PATCH REMOVE (20:51)
[2025-05-19 21:05] LABS: Glucose - Point of Care 115 mg/dl (70-99)
[2025-05-19] MEDS: LIPITOR 40 MG PO (21:08)
[2025-05-19 23:03] LABS: Glucose - Point of Care 110 mg/dl (70-99)
--- NOTE | 2025-05-19 23:18 | PTCARENOTE ---
Patient reassessed. Low urine output. Bladder scan for 187mL. Sinus bradycardia on monitor. VSS.
[2025-05-20] VITALS (24 sets, daily range): BP systolic 88–144; BP diastolic 43–72; PULSE 63; O2SAT 93–95; BMI 27.5
[2025-05-20 01:05] LABS: Glucose - Point of Care 97 mg/dl (70-99)
[2025-05-20] MEDS: NOVOLIN R INSULIN INFUSION 100 IV (03:12)
[2025-05-20 03:18] LABS: Glucose - Point of Care 102 mg/dl (70-99)
--- NOTE | 2025-05-20 03:31 | PTCARENOTE ---
Patient reassessed. SR w/ PAC's on monitor. BP 111/48 HR 63 POX 95% RA. Labs drawn.
[2025-05-20 03:40] LABS: Hematocrit 30.1 % (39.0-52.0); Hemoglobin 10.2 g/dL (13.0-18.0); Mean Corp Hgb Conc. 33.9 g/dL (33.0-37.0); Mean Corpuscular Volume 94.1 fL (80.0-94.0); Platelet Count 122 10^3/uL (130-400); Red Cell Dist. Width 13.5 % (11.5-14.5)
--- NOTE | 2025-05-20 03:57 | W.PN.CT ---
Today's Communication / Plan
-
-pod #2
-no issues overnight
-CT output: 2 meds 55/225, 2 pleur 55/345 in 12/24 hrs
-intermittently gets frequent PACs, monitor rhythm and BP. Increased Lopressor to 25 bid (at home takes Toprol 100 hs, hr 45 on preop ECG)
-current meds (ASA, Plavix, Lopressor, Amio, Lipitor, Colchicine, Protonix)
-encourage IS, OOB
Assessment / Plan
-
- mv-CAD - s/p CABG x 3 (TALIB to LAD, GSV to distal RPDA, GSV to LPLB); ELAA by Dr. Campoverde on 05/18/25, pod #2
- Pre-BRUCE: LVEF 60%-65% w/o RWMA, normal RV, mild MR w/ dilated LA and normal PRISCILA free of thrombus, grade III arch Ca++
- Post-BRUCE: Unchanged function w/o RMWA, PRISCILA confirmed excluded.
- Hypertension
- Hyperlipidemia
- Type 2 diabetes
- Heterozygous hemochromatosis
- History of LVH, resolved
- Preop bradycardia, hr mid 40s
- Echo 04/13/2025: EF 65 to 70%, stage II diastolic dysfunction, mild MAC, trace MR, PAP 29 mmHg
- Acute postop blood loss anemia
- Acute postop suspected pericarditis/+rub
- Acute postop atelectasis/pulmonary insufficiency
- Acute postop bradycardia/junctional rhythm
Discussed patient care with: Nursing and Care Team
Subjective
-
Date of Service: May 20, 2025
Objective Data
-
Lab Results
05/20/25 03:27
PT 16.4 Sec (11.4-14.6) H 05/18/25 13:59
INR 1.27 05/18/25 13:59
APTT 31.3 Sec (23.4-35.0) 05/18/25 13:59
Vital Signs
Vital Signs
Temp Pulse Resp BP Pulse Ox
98.6 F 61 14 111/48 96
05/20/25 03:09 05/20/25 03:00 05/20/25 03:09 05/20/25 03:00 05/20/25 03:09
CT Intake/Output/Weight
05/19/25 05/19/25 05/20/25
06:59 18:59 06:59
Intake Total 662.4 / 2081.5 1190.9 / 1293.5 102.6 / 1293.5
Output Total 705 / 1620 735 / 820 85 / 820
Balance -42.6 / 461.5 455.9 / 473.5 17.6 / 473.5
SaO2: 96
Physical Exam
-
General: Awake and AOx3
Cardiovascular: Regular rate & rhythm, No Murmurs and Rub
Respiratory: Decreased Breath Sounds
Sternum: Stable
Incision: Clean, Dry and Dressing Intact
Extremities: Edema +1
Data Reviewed
-
Lab Results: Results Reviewed
Medications: Active Meds Reviewed
Chest X-Ray: Report Reviewed and Image Reviewed
ECG: Report Reviewed and Image Reviewed
[2025-05-20 04:06] LABS: Blood Urea Nitrogen 32 mg/dl (9-20); Calcium 8.8 mg/dl (8.4-10.2); Carbon Dioxide 25 mmol/L (22-30); Chloride 106 mmol/L (98-107); Estimated Creatinine Clearance 75 ml/min; Glucose 94 mg/dl (70-99); Magnesium 2.3 mg/dl (1.6-2.3); Potassium 4.2 mmol/L (3.5-5.1); Sodium 134 mmol/L (135-145); eGFR > 60.00
[2025-05-20 05:12] LABS: Glucose - Point of Care 103 mg/dl (70-99)
[2025-05-20] MEDS: LOPRESSOR PO (06:13)
[2025-05-20] MEDS: TYLENOL 1000 MG PO ×3 (06:13→22:43)
[2025-05-20 07:02] LABS: Glucose - Point of Care 142 mg/dl (70-99)
--- NOTE | 2025-05-20 07:16 | W.PN.INTV ---
Today's Communication / Plan
Recommendations
Pain control, incentive spirometry, out of bed to chair
Chest tube management per surgery
Follow left pleural effusion, left basilar atelectasis
Once transferred to telemetry, we will sign off. Please call with questions
Assessment
-
74-year-old male with history of hypertension, hyperlipidemia, diabetes with progressive shortness of breath found to have multivessel coronary disease. Patient is status post CABG x 3 05/18/2025
S/p CABG x 3 on 05/18/25
Multivessel coronary disease per catheterization
Normal EF
Progressive shortness of breath, abnormal stress test
Conditions present prior to admission
Hypertension/hyperlipidemia
Diabetes
History of diverticulosis
History of melanoma
Family history of lung cancer, prostate cancer, colon cancer
Plan/recommendations
At this time, patient is doing well, sitting in chair, comfortable
Remains on insulin drip, off pressors
Chest tube output noted
Mild bradycardia noted, with PACs
Chest x-ray today with increased left pleural effusion, left basilar atelectasis
Beta-juaquin and amiodarone held due to bradycardia
Moving forward
Continue with management per CT surgery
Hemoglobin 10.2, stable
Chest tube management per CT surgery
Off norepinephrine
Follow left lower extremity hematoma, improved on today's exam
Follow blood sugars, Remains on insulin drip, being weaned
Incentive spirometry, pain control
Reviewed with critical care nursing
Once transferred to telemetry, we will sign off. Please call with questions
Subjective Dataa
Subjective Data
Date of Service:
Date of Service: May 20, 2025
Subjective:
Patient sitting in chair, on room air. Complaining of incisional pain but denies shortness of breath, nausea, abdominal pain. Appears to be in good spirits
Objective Data
Data Reviewed
Vital Signs / I&O / Oxygen:
Vital Signs
Temp Pulse Resp BP Pulse Ox
98.2 F 69 17 128/65 93
05/20/25 07:00 05/20/25 07:00 05/20/25 07:00 05/20/25 07:00 05/20/25 07:00
Intake and Output
05/19/25 05/20/25 05/21/25
06:59 06:59 06:59
Intake Total 2070.4 / 2081.5 1328.9 / 1328.9
Output Total 1470 / 1620 1415 / 1440
Balance 600.4 / 461.5 -86.1 / -111.1 -
SaO2 [CPAP/PSV] 99
SaO2 [SIMV] 98
SaO2 93
Nasal Cannula flow liters per 2
minute
Physical Exam
General: Comfortable and Other (IJ, chest tube)
HEENT: Normocephalic and Anicteric
Cardiovascular: S1-S2, Regular Rhythm, Murmur (n) and Rub (n)
Respiratory: Wheeze (n), Crackles (n), Rhonchi (n), Chest Tube, Other (Lower extremity bandage, right) and Other (Decreased breath sounds left base)
GI: Soft, Non Distended and Non Tender
Neurology: Awake, Alert and No Motor Deficits
Skin: Cyanosis (n), Rash (n) and Other (Left lower extremity incision with decreased swelling)
Labs/Micro/Reports
Lab Data
05/20/25 03:27
05/20/25 03:27
--- NOTE | 2025-05-20 08:02 | PN.DE.MGMTRT ---
Insulin Management
- -
05/20/2025: Diabetes Management Follow up
Patient admitted 05/18 for CABG x 3. PMH Diabetes, HTN, diverticulosis, mitral valve prolapse, LVH, HLD, malig. melanoma, cataracts, neuropathy. Prior to admission was taking Toujeo 45 units BID, Humalog ss TID, Jardiance 25 mg daily and metformin
1000 mg BID. A1C on admission 8.6%, cr today .7, eGFR > 60.
Patient states he has had diabetes ~ 6 or more years. States he follows with his primary doctor, Risa, for diabetes care.
Patient is awake alert and oriented, sitting up in bed able to discuss diabetes care.
s/p CABG, POD #2 patient receiving critical care glycemic protocol requiring up to 5 units of insulin per hour.
Will transition off insulin infusion to his home regimen.
Give NPH 15 units @ 1300, then turn drip off at 1400. Start Lantus 30 units @ HS, then OP dose of 45 units BID starting tomorrow morning.
Give Farxiga 10mg daily, 1st dose now. Metformin 1000mg BID, 1st dose at dinner, AC NovoLog 6 units, 1st dose @ dinner (takes 20-25 units w/meals at home)
Discussed with ANA team abput pt's OP regimne and need to adjust AC dose based on glucose trend over the weekend. Will cont to follow.
Diabetes History
- -
Type of Diabetes: 2 requiring insulin
Pre-Admission Diabetes Regimen
05/20/25
03:27
Creatinine 1.1
Lab Results
Hemoglobin A1c 8.6 % (4.0-5.6) H 05/13/25 08:53
Insulin Pump Settings
IP Diabetes Regimen
05/19/25 05/19/25 05/19/25
08:03 09:14 11:03
Glucose
POC Glucose 189 H 167 H 179 H
05/19/25 05/19/25 05/19/25
13:17 15:16 17:00
Glucose
POC Glucose 146 H 103 H 95
05/19/25 05/19/25 05/19/25
19:05 21:04 23:01
Glucose
POC Glucose 120 H 115 H 110 H
05/20/25 05/20/25 05/20/25
01:03 03:16 03:27
Glucose 94
POC Glucose 97 102 H
05/20/25 05/20/25
05:10 07:01
Glucose
POC Glucose 103 H 142 H
Patient Education
[2025-05-20] MEDS: NOVOLOG FLEXPEN 4 UNITS SC ×2 (08:17→12:33)
[2025-05-20] MEDS: BACTROBAN 2% OINTMENT 1 APPLIC NASAL ×2 (08:17→19:30)
[2025-05-20] MEDS: PACERONE 200 MG PO ×3 (08:18→22:44)
[2025-05-20] MEDS: LOW STRENGTH ASPIRIN 81 MG PO (08:18)
[2025-05-20] MEDS: LIDOCAINE 4% PATCH TOPICAL (08:18)
[2025-05-20] MEDS: NEURONTIN 100 MG PO ×3 (08:18→22:43)
[2025-05-20] MEDS: COLCHICINE 0.3 MG PO (08:18)
[2025-05-20] MEDS: PROTONIX 40 MG PO (08:18)
[2025-05-20] MEDS: MAGNESIUM OXIDE 400 MG PO ×2 (08:18→19:28)
[2025-05-20] MEDS: PLAVIX 75 MG PO (08:18)
[2025-05-20] MEDS: SENOKOT-S 1 TABLET PO ×2 (08:18→19:28)
[2025-05-20] MEDS: LOPRESSOR 25 MG PO ×2 (08:44→19:27)
[2025-05-20 09:09] LABS: Glucose - Point of Care 168 mg/dl (70-99)
--- NOTE | 2025-05-20 10:07 | PTCARENOTE ---
Pt AAOx3 in chair, not complaining of any pain, chest tubes intact, Pt able to walk with assistance, Goals for the shift discussed with Pt
[2025-05-20 10:55] LABS: Glucose - Point of Care 154 mg/dl (70-99)
[2025-05-20] MEDS: LASIX 40 MG IV (11:00)
--- NOTE | 2025-05-20 11:07 | W.PN.CARDCBS ---
Today's Communication / Plan
-
Chest pains are improved and he remains in sinus rhythm. No further junctional rhythm.
Continue amiodarone and metoprolol.
Increase activity. Hemoglobin at 10.2
Creatinine 1.1.
Impression / Plan
-
Primary Roof Cement And Paint Maker Helper: Dr. Ann Sosa
Assessment:
MV CAD s/p CABG x3 TALIB to LAD, GSV to distal RPDA, GSV to LPLB, PRISCILA clip 05/18/25
Hypertension
Hyperlipidemia
Type 2 diabetes
Heterozygous hemochromatosis
History of LVH, resolved
Echo 04/13/2025: EF 65 to 70%, stage II diastolic dysfunction, mild MAC, trace MR, PAP 29 mmHg
Plan:
-Status post CABG x3 TALIB to LAD, GSV to distal RPDA, GSV to LPLB, PRISCILA clip 05/18/25
-EKG 05/19 with evidence of lateral ST elevation, possible pericarditis, but most pronounced in lateral leads. Echo with preserved ejection fraction postoperatively
-was junctional intraop but now is sinus. Continue metoprolol and amiodarone.
-had significant rub 05/18, improved today
-was on Toprol 100 mg nightly and lisinopril 40 mg nightly prior to admission
-d/w nursing
Progress Note - Roof Cement And Paint Maker Helper
Subjective
Date of Service: May 20, 2025
Overall doing well. No new chest pains.
Objective
Labs:
05/20/25 03:27
05/20/25 03:27
Labs
Hgb 10.2 g/dL (13.0-18.0) L 05/20/25 03:27
Hct 30.1 % (39.0-52.0) L 05/20/25 03:27
Plt Count 122 10^3/uL (130-400) L D 05/20/25 03:27
PT 16.4 Sec (11.4-14.6) H 05/18/25 13:59
INR 1.27 05/18/25 13:59
APTT 31.3 Sec (23.4-35.0) 05/18/25 13:59
Sodium 134 mmol/L (135-145) L 05/20/25 03:27
Potassium 4.2 mmol/L (3.5-5.1) 05/20/25 03:27
BUN 32 mg/dl (9-20) H 05/20/25 03:27
Creatinine 1.1 mg/dL (0.7-1.3) 05/20/25 03:27
Glucose 94 mg/dl (70-99) 05/20/25 03:27
Vital Signs and I&O:
Vital Signs
Temp Pulse Resp BP Pulse Ox
98 F 65 18 117/61 92
05/20/25 08:00 05/20/25 11:00 05/20/25 11:00 05/20/25 11:00 05/20/25 11:00
Vital Signs
Temp Pulse Resp BP Pulse Ox
98 F 65 18 117/61 92
05/20/25 08:00 05/20/25 11:00 05/20/25 11:00 05/20/25 11:00 05/20/25 11:00
Intake & Output
05/18/25 05/19/25 05/20/25 05/21/25
06:59 06:59 06:59 06:59
Intake Total 0.4 / 2081.5 1328.9 / 1328.9 499.1 / 499.1
Output Total 1470 / 1620 1415 / 1440 60 / 60
Balance 600.4 / 461.5 -86.1 / -111.1 439.1 / 439.1
Physical Exam
Physical Exam
GEN: No distress, awake, Ox3
HEENT: supple, anicteric, mmm
LUNGS: CTA, no wheezes/rales
CV: Reg, S1/S2, 1/6 syst LSB, no rub
ABD: soft, BS+, NT/ND
EXT: No edema
NEURO: Gross non-focal
SKIN: sternotomy
--- NOTE | 2025-05-20 11:19 | CM ---
Chart reviewed. Patient is independent of ADLS, lives with his in a [address], [address] [place], 0 DME. Plan is for the patient to return home with CT Transitional RN. CM to follow
[2025-05-20] MEDS: FARXIGA 10 MG PO (11:22)
[2025-05-20] MEDS: NOVOLIN N vial 0.15 UNITS SC (12:34)
[2025-05-20 13:07] LABS: Glucose - Point of Care 175 mg/dl (70-99)
--- NOTE | 2025-05-20 13:20 | PTCARENOTE ---
D/Freddy pts chest tubes, pt rested comfortably then went for x2 walks around the units
[2025-05-20 14:06] LABS: Glucose - Point of Care 177 mg/dl (70-99)
[2025-05-20] MEDS: NSS IV (14:10)
--- NOTE | 2025-05-20 16:58 | PTCARENOTE ---
No changes to pt's assessment at this time, Pt has been ambulating in the day, chair, and bed with ease Pt insulin drip D/Freddy, will continue to monitor
[2025-05-20] MEDS: NOVOLOG FLEXPEN 6 UNITS SC (17:48)
[2025-05-20 17:49] LABS: Glucose - Point of Care 152 mg/dl (70-99)
[2025-05-20] MEDS: NOVOLOG FLEXPEN-LOW RESISTANCE 1 UNITS SC (17:49)
[2025-05-20] MEDS: GLUCOPHAGE 1000 MG PO (17:50)
[2025-05-20] MEDS: REMOVE LIDOCAINE PATCH REMOVE (19:28)
--- NOTE | 2025-05-20 19:51 | PTCARENOTE ---
Assumed care of patient at 1900. Patient found oob in chair at time of assessment. Patient is AOx4, follows commands appropriately, moves all extremities. Lung sounds are clear and equal bilaterally saO2 96% on RA. Heart sounds are audible, there is
a rub present on auscultation, patient is SR on the monitor and V wires are present but insulated. Patient has normal palpable pulses and trace edema is present in both lower extremities as well as the L knee. Patient has active BS in all four
quadrants and is voiding in the urinal. There is a sternal incision with aquacell dressing that is CDI, R groin puncture approx with surg adhesive TRACIE, RLE incision approx with surg adhesive ERP CONSULTANT, and LLE incision approx with surg adhesive TRACIE. There
is a R IJ cordis receiving KVO and R FA 22G PIV. VSS. Call shirley within reach.
[2025-05-20] MEDS: LIPITOR 40 MG PO (22:43)
[2025-05-20 22:44] LABS: Glucose - Point of Care 138 mg/dl (70-99)
[2025-05-20] MEDS: LANTUS 0.3 UNITS SC (22:44)
[2025-05-21] VITALS (10 sets, daily range): BP systolic 105–150; BP diastolic 57–75; PULSE 65; O2SAT 94–96; BMI 26.8
--- NOTE | 2025-05-21 | PTCARENOTE ---
Patient reassessed. VSS. Remains SR on the monitor. Call shirley within reach.
[2025-05-21 03:03] LABS: Hematocrit 32.1 % (39.0-52.0); Hemoglobin 10.9 g/dL (13.0-18.0); Mean Corp Hgb Conc. 34.0 g/dL (33.0-37.0); Mean Corpuscular Volume 93.0 fL (80.0-94.0); Platelet Count 139 10^3/uL (130-400); Red Cell Dist. Width 13.6 % (11.5-14.5)
[2025-05-21 03:27] LABS: Blood Urea Nitrogen 33 mg/dl (9-20); Calcium 8.8 mg/dl (8.4-10.2); Carbon Dioxide 21 mmol/L (22-30); Chloride 104 mmol/L (98-107); Estimated Creatinine Clearance 75 ml/min; Glucose 131 mg/dl (70-99); Magnesium 2.2 mg/dl (1.6-2.3); Potassium 4.1 mmol/L (3.5-5.1); Sodium 135 mmol/L (135-145); eGFR > 60.00
[2025-05-21] MEDS: TYLENOL 1000 MG PO ×3 (06:26→22:23)
--- NOTE | 2025-05-21 06:51 | W.PN.CT ---
Today's Communication / Plan
-
-pod #3
-no issues overnight, no complaints
-current meds (ASA, Plavix, Lopressor, Amio, Lipitor, Colchicine, Protonix, Farxiga, Glucophage, Lantus/Novolog)
-encourage IS, OOB, ambulate
Assessment / Plan
-
- mv-CAD - s/p CABG x 3 (TALIB to LAD, GSV to distal RPDA, GSV to LPLB); ELAA by Dr. Campoverde on 05/18/25, pod #3
- Pre-BRUCE: LVEF 60%-65% w/o RWMA, normal RV, mild MR w/ dilated LA and normal PRISCILA free of thrombus, grade III arch Ca++
- Post-BRUCE: Unchanged function w/o RMWA, PRISCILA confirmed excluded.
- Hypertension
- Hyperlipidemia
- Type 2 diabetes
- Heterozygous hemochromatosis
- History of LVH, resolved
- Preop bradycardia, hr mid 40s
- Echo 04/13/2025: EF 65 to 70%, stage II diastolic dysfunction, mild MAC, trace MR, PAP 29 mmHg
- Acute postop blood loss anemia
- Acute postop suspected pericarditis/+rub
- Acute postop atelectasis/pulmonary insufficiency
- Acute postop bradycardia/junctional rhythm
Discussed patient care with: Nursing and Care Team
Subjective
-
Date of Service: May 21, 2025
Objective Data
-
PT 16.4 Sec (11.4-14.6) H 05/18/25 13:59
INR 1.27 05/18/25 13:59
APTT 31.3 Sec (23.4-35.0) 05/18/25 13:59
Vital Signs
Vital Signs
Temp Pulse Resp BP Pulse Ox
98.0 F 69 20 136/72 94
05/20/25 23:00 05/20/25 19:30 05/20/25 23:00 05/20/25 19:25 05/20/25 23:00
CT Intake/Output/Weight
05/20/25 05/20/25 05/21/25
06:59 18:59 06:59
Intake Total 138.0 / 1328.9 1483.1 / 1483.1
Output Total 680 / 1440 2485 / 2985 500 / 2985
Balance -542.0 / -111.1 -1001.9 / -1501.9 -500 / -1501.9
SaO2: 94
Physical Exam
-
General: Awake and AOx3
Cardiovascular: Regular rate & rhythm, No Murmurs and Rub
Respiratory: Decreased Breath Sounds
Sternum: Stable
Incision: Clean, Dry and Intact
Extremities: No Edema
Data Reviewed
-
Lab Results: Results Reviewed
Medications: Active Meds Reviewed
Chest X-Ray: Report Reviewed and Image Reviewed
ECG: Report Reviewed and Image Reviewed
--- NOTE | 2025-05-21 07:16 | W.PN.INTV ---
Today's Communication / Plan
Recommendations
Negative fluid status noticed, x-ray improved
Ambulate, incentive spirometry
Disposition efforts noted
Per nursing, patient has been transferred to telemetry. We will sign off. Please call with questions
Assessment
-
74-year-old male with history of hypertension, hyperlipidemia, diabetes with progressive shortness of breath found to have multivessel coronary disease. Patient is status post CABG x 3 05/18/2025
S/p CABG x 3 on 05/18/25
Multivessel coronary disease per catheterization
Normal EF
Progressive shortness of breath, abnormal stress test
Conditions present prior to admission
Hypertension/hyperlipidemia
Diabetes
History of diverticulosis
History of melanoma
Family history of lung cancer, prostate cancer, colon cancer
Plan/recommendations
At this time, patient is doing well, sitting in chair, comfortable
observed ambulating in the room also without difficulty
Off pressors, off insulin
Diuresis noted
Chest x-ray improved
Moving forward
Continue with management per CT surgery
Hemoglobin stable
Ambulate, incentive spirometry, out of bed to chair
Patient transferred to telemetry
Reviewed with critical care nursing
We will sign off. Please call with questions
Subjective Dataa
Subjective Data
Date of Service:
Date of Service: May 21, 2025
Subjective:
Patient improved overall. Less short of breath, denies significant cough. Denies nausea, abdominal pain. Observed ambulating without difficulty. Negative fluid status noted
Objective Data
Data Reviewed
Vital Signs / I&O / Oxygen:
Vital Signs
Temp Pulse Resp BP Pulse Ox
98.0 F 59 22 148/75 96
05/21/25 03:11 05/21/25 03:00 05/21/25 03:11 05/21/25 02:06 05/21/25 03:11
Intake and Output
08/05/21/25 05/22/25
06:59 06:59 06:59
Intake Total 1328.9 / 1328.9 1963.1 / 1963.1
Output Total 1415 / 1440 3910 / 3910
Balance -86.1 / -111.1 -1946.9 / -1946.9
SaO2 [CPAP/PSV] 99
SaO2 [SIMV] 98
SaO2 96
Nasal Cannula flow liters per 2
minute
Physical Exam
General: Comfortable and Other (IJ, chest tube)
HEENT: Normocephalic and Anicteric
Cardiovascular: S1-S2, Regular Rhythm, Murmur (n) and Rub (n)
Respiratory: Clear, Wheeze (n), Crackles (n) and Rhonchi (n)
GI: Soft, Non Distended and Non Tender
Neurology: Awake, Alert and No Motor Deficits
Skin: Cyanosis (n), Rash (n) and Other (Left lower extremity incision with decreased swelling)
Labs/Micro/Reports
Lab Data
05/21/25 02:12
05/21/25 02:12
--- NOTE | 2025-05-21 08:00 | PTCARENOTE ---
pt received from previous RN, oriented, OOB in chair. SR w/ PACs on the monitor, HR 60-80s. V wires insulated. +rub. SBP 140s. palpable pulses, trace LE edema. pt on RA, 98% POX. lungs clear. IS encouraged. pt abdomen s/n, denies n/v. +BS, no BM
yet. voids. ambulates independently. sternal aquacel in place, chest tube dressing c/d/i. R groin puncture intact. RLE incision TRACIE, approximated. L knee incision approximated, mild swelling, denies pain, s/n. RIJ cordis in place. PIV. see worklist
for VS, I&O, and assessment.
[2025-05-21 08:07] LABS: Glucose - Point of Care 238 mg/dl (70-99)
[2025-05-21] MEDS: NOVOLOG FLEXPEN 6 UNITS SC ×2 (08:07→12:06)
[2025-05-21] MEDS: NOVOLOG FLEXPEN-LOW RESISTANCE 2 UNITS SC ×3 (08:07→18:00)
[2025-05-21] MEDS: BACTROBAN 2% OINTMENT 1 APPLIC NASAL ×2 (08:08→19:31)
--- NOTE | 2025-05-21 08:28 | W.PN.CARDCBS ---
Today's Communication / Plan
-
Doing well. Remains in sinus.
Continue amiodarone, metoprolol, and colchicine.
Increase activity
Impression / Plan
-
Primary Airport Planner: Dr. Ann Sosa
Assessment:
MV CAD s/p CABG x3 TALIB to LAD, GSV to distal RPDA, GSV to LPLB, PRISCILA clip 05/18/25
Hypertension
Hyperlipidemia
Type 2 diabetes
Heterozygous hemochromatosis
History of LVH, resolved
Echo 04/13/2025: EF 65 to 70%, stage II diastolic dysfunction, mild MAC, trace MR, PAP 29 mmHg
Plan:
-Status post CABG x3 TALIB to LAD, GSV to distal RPDA, GSV to LPLB, PRISCILA clip 05/18/25
-EKG 05/19 with evidence of lateral ST elevation, possible pericarditis, but most pronounced in lateral leads. Echo with preserved ejection fraction postoperatively
-was junctional intraop but now is sinus. Continue metoprolol and amiodarone.
-had significant rub 05/18, improved today
- Continue Farxiga
-Continue aspirin and Plavix
Continue Colchicine
Hg 10.9, Creat 1.1
Progress Note - Airport Planner
Subjective
Date of Service: May 21, 2025
Doing well. No significant pains. Breathing is stable
Objective
Labs:
05/21/25 02:12
05/21/25 02:12
Labs
Hgb 10.9 g/dL (13.0-18.0) L 05/21/25 02:12
Hct 32.1 % (39.0-52.0) L 05/21/25 02:12
Plt Count 139 10^3/uL (130-400) 05/21/25 02:12
PT 16.4 Sec (11.4-14.6) H 05/18/25 13:59
INR 1.27 05/18/25 13:59
APTT 31.3 Sec (23.4-35.0) 05/18/25 13:59
Sodium 135 mmol/L (135-145) 05/21/25 02:12
Potassium 4.1 mmol/L (3.5-5.1) 05/21/25 02:12
BUN 33 mg/dl (9-20) H 05/21/25 02:12
Creatinine 1.1 mg/dL (0.7-1.3) 05/21/25 02:12
Glucose 131 mg/dl (70-99) H 05/21/25 02:12
Vital Signs and I&O:
Vital Signs
Temp Pulse Resp BP Pulse Ox
97.8 F 68 22 142/63 98
05/21/25 08:00 05/21/25 08:04 05/21/25 03:11 05/21/25 08:04 05/21/25 08:04
Vital Signs
Temp Pulse Resp BP Pulse Ox
97.8 F 68 22 142/63 98
05/21/25 08:00 05/21/25 08:04 05/21/25 03:11 05/21/25 08:04 05/21/25 08:04
Intake & Output
05/19/25 05/20/25 05/21/25 05/22/25
06:59 06:59 06:59 06:59
Intake Total 2069.4 / 1.5 1328.9 / 1328.9 1963.1 / 1963.1
Output Total 1470 / 1620 1415 / 1440 3910 / 3910
Balance 600.4 / 461.5 -86.1 / -111.1 -1946.9 / -1946.9
Physical Exam
Physical Exam
GEN: No distress, awake, Ox3
HEENT: supple, anicteric, mmm
LUNGS: CTA, no wheezes/rales
CV: Reg, S1/S2, no murmur
ABD: soft, BS+, NT/ND
EXT: No edema
NEURO: Gross non-focal
SKIN: sternotomy
[2025-05-21] MEDS: COLCHICINE 0.3 MG PO (08:30)
[2025-05-21] MEDS: SENOKOT-S 1 TABLET PO ×2 (08:31→19:30)
[2025-05-21] MEDS: GLUCOPHAGE 1000 MG PO ×2 (08:31→17:59)
[2025-05-21] MEDS: PACERONE 200 MG PO ×3 (08:31→22:23)
[2025-05-21] MEDS: MAGNESIUM OXIDE 400 MG PO ×2 (08:31→19:30)
[2025-05-21] MEDS: NEURONTIN 100 MG PO ×3 (08:31→22:23)
[2025-05-21] MEDS: LOPRESSOR 25 MG PO (08:31)
[2025-05-21] MEDS: LOW STRENGTH ASPIRIN 81 MG PO (08:31)
[2025-05-21] MEDS: PROTONIX 40 MG PO (08:31)
[2025-05-21] MEDS: PLAVIX 75 MG PO (08:31)
[2025-05-21] MEDS: FARXIGA 10 MG PO (08:31)
[2025-05-21] MEDS: LASIX 40 MG IV (08:32)
[2025-05-21] MEDS: KLOR-CON 20 MEQ PO (08:32)
[2025-05-21] MEDS: LANTUS 0.45 UNITS SC ×2 (08:32→22:22)
[2025-05-21] MEDS: LIDOCAINE 4% PATCH TOPICAL (11:09)
[2025-05-21] MEDS: NSS IV (11:23)
[2025-05-21 11:33] LABS: Glucose - Point of Care 232 mg/dl (70-99)
--- NOTE | 2025-05-21 12:23 | PTCARENOTE ---
Addendum entered by Sabrina Johnson RN 05/21/25 12:55:
pt ambulated full loop, placed back to bed. JOSÉ LUIS russo dc'terri. dressing c/d/i. PA aware of sinus arrhythmia and blood sugars.
Original Note:
pt VSS, no changes in assessment. OOB in chair, at bedside. pt completed stairs w/ CR. ambulating hallway and room independently.
[2025-05-21] MEDS: ROXICODONE 2.5 MG PO (12:29)
[2025-05-21] MEDS: LOPRESSOR 12.5 MG PO (13:03)
--- NOTE | 2025-05-21 15:27 | PTCARENOTE ---
pt VS completed, resting between care. pt went into controlled afib @~1449, PA Colton aware. EKG performed. pt denies lightheadedness or dizziness.
[2025-05-21 17:41] LABS: Glucose - Point of Care 208 mg/dl (70-99)
[2025-05-21] MEDS: NOVOLOG FLEXPEN 8 UNITS SC (17:59)
--- NOTE | 2025-05-21 18:08 | PTCARENOTE ---
pt converted to SR @~1633, PA aware. pt ambulated loop independently, tolerated well. voids. +flatus, no BM yet. shampoo cap applied, oral hygiene performed. chest tube dressing changed, sites cleaned w/ CHG, TRACIE. V wire dressing in place.
[2025-05-21] MEDS: LOPRESSOR 37.5 MG PO (19:29)
[2025-05-21] MEDS: REMOVE LIDOCAINE PATCH REMOVE (19:30)
--- NOTE | 2025-05-21 20:00 | PTCARENOTE ---
Assumed care of patient at 1900. Patient found oob in chair at time of assessment. Patient is AOx4, follows commands appropriately, moves all extremities. Lung sounds are clear and equal bilaterally, saO2 100% on RA. Heart sounds are audible, +rub
on auscultation, patient is SR with infrequent PACs on the monitor. Patient has normal palpable pulses and trace BLE edema. Patient has +BS, +flatus, and is voiding in urinal. There is a sternal incision with aquacell dressing that is CDI, R groin
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 Patient has R hand 22g PIV for intermittent infusion. No c/o pain. Call
shirley within reach.
[2025-05-21] MEDS: LIPITOR 40 MG PO (22:23)
[2025-05-21 22:27] LABS: Glucose - Point of Care 186 mg/dl (70-99)
--- NOTE | 2025-05-22 | PTCARENOTE ---
Patient reassessed. VSS. Remains SR on the monitor. Call shirley within reach.
[2025-05-22 04:04] VITALS: BP 131/73
[2025-05-22 05:25] LABS: Hematocrit 33.7 % (39.0-52.0); Hemoglobin 11.5 g/dL (13.0-18.0); Mean Corp Hgb Conc. 34.1 g/dL (33.0-37.0); Mean Corpuscular Volume 95.2 fL (80.0-94.0); Platelet Count 178 10^3/uL (130-400); Red Cell Dist. Width 13.5 % (11.5-14.5)
--- NOTE | 2025-05-22 05:31 | PTCARENOTE ---
At 0400 patient converted into slow afib rhythm HR 50s-60s. Patient asymptomatic and blood pressure stable. CT EDUCATION CONSULTANT notified. No new orders at this time.
[2025-05-22 05:32] LABS: Blood Urea Nitrogen 34 mg/dl (9-20); Calcium 8.7 mg/dl (8.4-10.2); Carbon Dioxide 25 mmol/L (22-30); Chloride 103 mmol/L (98-107); Estimated Creatinine Clearance 82 ml/min; Glucose 134 mg/dl (70-99); Magnesium 2.3 mg/dl (1.6-2.3); Potassium 3.7 mmol/L (3.5-5.1); Sodium 136 mmol/L (135-145); eGFR > 60.00
--- NOTE | 2025-05-22 05:37 | W.PN.CT ---
Today's Communication / Plan
-
-pod #4
-persistently in a rate controlled afib this morning, was going in and out of a rate controlled fib yesterday. Will need to consider a DOAC on DC
-continued on amio TID and metoprolol 37.5 mg
-otherwise doing well, no other adverse events overnight
- ~2500 cc UOP in 24 hrs
-current meds (ASA, Plavix, Lopressor, Amio, Lipitor, Colchicine, Protonix, Farxiga, Glucophage, Lantus/Novolog)
-encourage IS, OOB, ambulate
Assessment / Plan
-
- mv-CAD - s/p CABG x 3 (TALIB to LAD, GSV to distal RPDA, GSV to LPLB); [facility] by Dr. Campoverde on 05/18/25, pod #4
- Pre-BRUCE: LVEF 60%-65% w/o RWMA, normal RV, mild MR w/ dilated LA and normal PRISCILA free of thrombus, grade III arch Ca++
- Post-BRUCE: Unchanged function w/o RMWA, PRISCILA confirmed excluded.
- Hypertension
- Hyperlipidemia
- Type 2 diabetes
- Heterozygous hemochromatosis
- History of LVH, resolved
- Preop bradycardia, hr mid 40s
- Echo 04/13/2025: EF 65 to 70%, stage II diastolic dysfunction, mild MAC, trace MR, PAP 29 mmHg
- Acute postop blood loss anemia
- Acute postop suspected pericarditis/+rub
- Acute postop atelectasis/pulmonary insufficiency
- Acute postop bradycardia/junctional rhythm
Subjective
-
Date of Service: May 22, 2025
Objective Data
-
Lab Results
05/22/25 04:16
05/22/25 04:16
PT 16.4 Sec (11.4-14.6) H 05/18/25 13:59
INR 1.27 05/18/25 13:59
APTT 31.3 Sec (23.4-35.0) 05/18/25 13:59
Vital Signs
Vital Signs
Temp Pulse Resp BP Pulse Ox
98.4 F 57 20 131/73 97
05/22/25 04:23 05/22/25 05:00 05/22/25 04:23 05/22/25 04:04 05/22/25 04:23
CT Intake/Output/Weight
05/21/25 05/21/25 05/22/25
06:59 18:59 06:59
Intake Total 480 / 1963.1
Output Total 1425 / 3910 5 / 2575 500 / 2575
Balance -945 / -1946.9 -2075 / -2575 -500 / -2575
SaO2: 97
Physical Exam
-
General: Awake and Oriented
Cardiovascular: Irregular rate & rhythm
Respiratory: Clear
Sternum: Stable
Incision: Clean, Dry and Intact
Extremities: No Edema
Data Reviewed
-
Lab Results: Results Reviewed
Medications: Active Meds Reviewed
Chest X-Ray: Report Reviewed
ECG: Report Reviewed
[2025-05-22 06:00] VITALS: BMI 26.1
[2025-05-22] MEDS: TYLENOL 1000 MG PO (06:29)
--- NOTE | 2025-05-22 06:49 | PTCARENOTE ---
Converted back to SR at 1932
[2025-05-22 07:41] VITALS: BP 131/59
[2025-05-22 07:44] LABS: Glucose - Point of Care 152 mg/dl (70-99)
[2025-05-22] MEDS: NOVOLOG FLEXPEN 8 UNITS SC ×2 (07:45→11:52)
[2025-05-22] MEDS: NOVOLOG FLEXPEN-LOW RESISTANCE 1 UNITS SC (07:45)
[2025-05-22] MEDS: NEURONTIN 100 MG PO (07:46)
[2025-05-22] MEDS: LOW STRENGTH ASPIRIN 81 MG PO (07:46)
[2025-05-22] MEDS: LANTUS 0.45 UNITS SC (07:46)
[2025-05-22] MEDS: MAGNESIUM OXIDE 400 MG PO (07:46)
[2025-05-22] MEDS: GLUCOPHAGE 1000 MG PO (07:46)
[2025-05-22] MEDS: LOPRESSOR 37.5 MG PO (07:47)
[2025-05-22] MEDS: COLCHICINE 0.3 MG PO (07:47)
[2025-05-22] MEDS: SENOKOT-S 1 TABLET PO (07:47)
[2025-05-22] MEDS: PROTONIX 40 MG PO (07:47)
[2025-05-22] MEDS: FARXIGA 10 MG PO (07:47)
[2025-05-22] MEDS: PACERONE 200 MG PO (07:47)
[2025-05-22] MEDS: LIDOCAINE 4% PATCH TOPICAL (07:47)
[2025-05-22] MEDS: BACTROBAN 2% OINTMENT 1 APPLIC NASAL (07:48)
[2025-05-22] MEDS: NSS IV (07:48)
[2025-05-22] MEDS: KCL 40 MEQ PO (07:58)
--- NOTE | 2025-05-22 08:00 | PTCARENOTE ---
pt received from previous RN, oriented, OOB in chair. SR w/ PACs on the monitor, HR 60-80s. V-wire insulated. +rub. SBP 130s. palpable pulses, trace LE edema. pt on RA, 97% POX. lungs clear. IS encouraged. pt abdomen s/n, denies n/v. +BS, +BM.
voids. ambulates independently. sternal aquacel in place, CT site and sutures intact. R groin puncture intact. RLE incision TRAICE, approximated. L knee incision approximated, mild swelling, denies pain, s/n. PIV. see worklist for VS, I&O, and
assessment.
[2025-05-22] MEDS: ELIQUIS 5 MG PO (08:29)
--- NOTE | 2025-05-22 08:49 | W.PN.CARDCBS ---
Today's Communication / Plan
-
Had some paroxysmal atrial fibrillation over last 12 hours. Agree with starting Eliquis and stopping Plavix. Continue aspirin.
Continue amiodarone and metoprolol. Back in sinus rhythm today.
For possible discharge if remains stable.
Impression / Plan
-
Primary Mud Car Worker: Dr. Ann Sosa
Assessment:
MV CAD s/p CABG x3 TALIB to LAD, GSV to distal RPDA, GSV to LPLB, PRISCILA clip 05/18/25
Paroxysmal atrial fibrillation
Hypertension
Hyperlipidemia
Type 2 diabetes
Heterozygous hemochromatosis
History of LVH, resolved
Echo 04/13/2025: EF 65 to 70%, stage II diastolic dysfunction, mild MAC, trace MR, PAP 29 mmHg
Plan:
-Status post CABG x3 TALIB to LAD, GSV to distal RPDA, GSV to LPLB, PRISCILA clip 05/18/25
-EKG 05/[address] with evidence of [address] ST elevation, possible pericarditis, but most pronounced in lateral leads. Echo with preserved ejection fraction postoperatively
-was junctional intraop but now is sinus. Had 2 hours of atrial fibrillation overnight. Now back in sinus. Continue amiodarone and metoprolol. Agree with starting Eliquis.
-had significant rub 05/18, improved today
- Continue Farxiga
-Continue aspirin and would DC
Continue Colchicine
Hg 11.5, Creat 1.0
Progress Note - Mud Car Worker
Subjective
Date of Service: May 22, 2025
Back in sinus rhythm today. Denies chest pains or shortness of breath.
Objective
Labs:
05/22/25 04:16
05/22/25 04:16
Labs
Hgb 11.5 g/dL (13.0-18.0) L 05/22/25 04:16
Hct 33.7 % (39.0-52.0) L 05/22/25 04:16
Plt Count 178 10^3/uL (130-400) D 05/22/25 04:16
PT 16.4 Sec (11.4-14.6) H 05/18/25 13:59
INR 1.27 05/18/25 13:59
APTT 31.3 Sec (23.4-35.0) 05/18/25 13:59
Sodium 136 mmol/L (135-145) 05/22/25 04:16
Potassium 3.7 mmol/L (3.5-5.1) 05/22/25 04:16
BUN 34 mg/dl (9-20) H 05/22/25 04:16
Creatinine 1.0 mg/dL (0.7-1.3) 05/22/25 04:16
Glucose 134 mg/dl (70-99) H 05/22/25 04:16
Vital Signs and I&O:
Vital Signs
Temp Pulse Resp BP Pulse Ox
97.9 F 75 18 131/59 97
05/22/25 08:00 05/22/25 08:00 05/22/25 08:00 05/22/25 07:47 05/22/25 08:00
Vital Signs
Temp Pulse Resp BP Pulse Ox
97.9 F 75 18 131/59 97
05/22/25 08:00 05/22/25 08:00 05/22/25 08:00 05/22/25 07:47 05/22/25 08:00
Intake & Output
05/20/25 05/21/25 05/22/25 05/23/25
06:59 06:59 06:59 06:59
Intake Total 1328.9 / 1328.9 1963.1 / 1963.1 480 / 480
Output Total 1415 / 1440 3910 / 3910 3125 / 3125
Balance -86.1 / -111.1 -1946.9 / -1946.9 -3125 / -3125 480 / 480
Physical Exam
Physical Exam
GEN: No distress, awake, Ox3
HEENT: supple, anicteric, mmm
LUNGS: CTA, no wheezes/rales
CV: Reg, S1/S2, no rub
ABD: soft, BS+, NT/ND
EXT: No edema
NEURO: Gross non-focal
SKIN: sternotomy
--- NOTE | 2025-05-22 09:08 | W.DCSUMMARY ---
Discharge Summary
Discharge Data
Date of Admission: 05/18/25
Date of Discharge: 05/22/25
-
Pending Results: No
Hospital Course
Primary care physician: Fabrizio Lord
Outpatient manager provider relations: Gilbert Ryan
Inpatient consultants: Cardiology, anesthesia
Procedures:
Coronary bypass grafting x 3 (left internal thoracic artery to left anterior descending, greater saphenous vein to right posterior descending artery, greater saphenous vein to left posterolateral branch); exclusion of left atrial appendage by
Gilles on 05/18/25
Primary Diagnosis:
Multivessel coronary artery disease
Secondary Diagnoses:
- Hypertension
- Hyperlipidemia
- Type 2 diabetes
- Heterozygous hemochromatosis
- History of left ventricular hypertrophy
- Bradycardia
- Stage II diastolic dysfunction, mild mitral annular calcification, trace mitral regurgitation
- Acute postop blood loss anemia
- Acute postop suspected pericarditis/+rub
- Acute postop atelectasis/pulmonary insufficiency
- Acute postop bradycardia/junctional rhythm
HPI: The patient was evaluated in the outpatient setting by Dr. Campoverde regarding his coronary artery disease. He underwent the appropriate preoperative workup and was deemed a surgical candidate. He was admitted electively to undergo the
above-mentioned procedure.
Hospital course: Patient was admitted and underwent coronary artery bypass grafting by Dr. Campoverde on 05/18/2025. Please refer to the separately dictated operative report for complete details. Postoperatively the patient progressed well. He was
transferred to the intensive care unit on low-dose Levophed as well as Precedex and insulin infusions. He was extubated per usual postop protocol without issues at 1645. He received no blood products perioperatively.
Postoperative day #1: Vasoactive infusions were weaned off. Lateral ST elevations were noted on ECG and the patient was diagnosed with pericarditis and started on low-dose colchicine. He remained stable otherwise and transthoracic echocardiogram
did not reveal any new regional wall motion abnormalities. He began ambulating.
Postoperative day #2: Chest tubes were removed. He was transitioned off his insulin drip to his usual dose of subcutaneous insulin. He was also started on metformin and dapagliflozin.
Postoperative day #3: He continues to do well. He does flip in and out of rate controlled A-fib. He is not symptomatic when these episodes occur. He is on room air and imaging independently.
Postoperative day #4: He is cleared for discharge to home. He again had rate controlled atrial fibrillation overnight. He was started on Eliquis prior to discharge. I reviewed his discharge instructions with him extensively prior to him leaving
today and answered his questions to his satisfaction.
Home medication changes: Added 5 mg p.o. twice daily Eliquis, as well as oxycodone and Tylenol for acute pain control following surgery. Also added colchicine 0.6 mg twice daily for 3 months for acute postoperative pericarditis.
Please note the majority of this dictation was created using voice recognition software. Please excuse any phonetic or grammatical errors as a result.
Discharge Plan
-
Patient Disposition: Home (Routine Discharge)
Discharge Diagnosis/Procedures: - Multivessel coronary artery disease status post coronary bypass grafting x 3 (left internal thoracic artery to left anterior descending, greater saphenous vein to right posterior descending artery, greater saphenous
vein to left posterolateral branch); exclusion of left atrial appendage by Dr. Campoverde on 05/18/25
- Hypertension
- Hyperlipidemia
- Type 2 diabetes
- Heterozygous hemochromatosis
- History of left ventricular hypertrophy
- Bradycardia
- Stage II diastolic dysfunction, mild mitral annular calcification, trace mitral regurgitation
- Acute postop blood loss anemia
- Acute postop suspected pericarditis/+rub
- Acute postop atelectasis/pulmonary insufficiency
- Acute postop bradycardia/junctional rhythm
Diet: Low Cholesterol, Low Sodium and Diabetic, Carb Controlled
Activity: No strenuous activity
Driving Restrictions: Not until seen by your Dr
Bathing Restrictions: OK to Shower
Other Services: Cardiac Rehab
Specialty Instructions: Weigh Daily- Call MD for wt gain/loss 3 lbs overnight/5 lbs in 1 week
Activity Restrictions/Additional Instructions:
ACTIVITY:
-No strenuous activity: no heavy lifting, pushing, pulling anything over 15 pounds for one month
-continue to use stairs as tolerated
DRIVING RESTRICTIONS:
-No driving for one month or until approved by your surgeon
WOUND CARE:
-Shower daily. Use soap & water.
-No lotions, creams or powders on incision area.
DIET:
-continue a low fat/low cholesterol diet.
-IF you are diabetic, continue carb controlled diet.
CARDIAC REHAB:
-Please make appointment to start in 5-6 weeks with your local hospital program. (See Cardiac Rehabilitation Discharge Booklet).
SPECIALTY INSTRUCTIONS:
-Weigh yourself daily. Call your physician for any weight gain/loss of 3 lbs overnight or 5 lbs in one week.
-REPORT any clicking noise or uneven appearance of your sternum to your surgeon immediately.
-If you smoke, you are instructed to quit. The [place] smoking hotline phone number is [phone]
Referrals:
CT Transitional Care Nurse [Outside]
[facility] [Outside] - 06/24/25 1:00 pm
Referral Note: Cardiac Rehab Orientation appointment and First Exercise appointment is on 06/24 at 1 PM.
The Cardiac Rehab gym is located on the first floor of the [facility].
Fabrizio Lord MD [Family Provider, Family Practice]
Paris Bray CRNP [Specified Professional Personl, Cardiology] - 06/28/25 10:00 am
Jaret Campoverde MD [Active, Cardiac Surgery] - 06/21/25 2:00 pm
Prescriptions:
New
oxycodone 5 mg Tablet
5 mg PO Q6HPRN PRN (Reason: moderate pain) 7 Days Qty: 28 0RF
Eliquis 5 mg Tablet
5 mg PO BID 90 Days Qty: 180 0RF
metoprolol succinate 100 mg Tablet Extended Release 24 Hr
100 mg PO DAILY Qty: 30 2RF
colchicine 0.6 mg tablet
0.6 mg PO BID 90 Days Qty: 180 0RF
Continued
Ageless Male
1 tab PO DAILY
metformin 1,000 mg Tablet
1,000 mg PO BID
coenzyme Q10 [CoQ-10] 100 mg Capsule
300 mg PO DAILY
Jardiance 25 mg Tablet
25 mg PO DAILY
insulin glargine U-300 conc [Toujeo SoloStar U-300 Insulin] 300 unit/mL (1.5 mL) Insulin Pen
45 unit SC BID
Patient Comments:
1900
Focus Factor
1 tab PO DAILY
insulin lispro [Humalog U-100 Insulin] 100 unit/mL Solution
1 sliding scale dose SC TID
Glucosamine Chondroitin 550-30-1 mg Capsule
1 cap PO DAILY
aspirin 81 mg Tablet
81 mg PO HS Qty: 0 0RF
Patient Comments:
last night
atorvastatin 40 mg Tablet
40 mg PO HS Qty: 0 0RF
Patient Comments:
last nigth
Discontinued
metoprolol succinate 50 mg Tablet Extended Release 24 Hr
100 mg PO HS
lisinopril 40 mg Tablet
40 mg PO HS
Care Plan Goals
Care Plan Goals:
Problem: Readiness for enhanced knowledge related to diagnosis and treatment plan
Goal: Understand your diagnosis and treatment plan needs, including medications if applicable.
Instructions: Know your diagnosis, underlying causes and treatment plan options, including medications if applicable. Consult with your health care team to learn about your diagnosis and treatment plan, including medications if applicable.
Discharge Date and Time
Print Language: FAROESE
[2025-05-22 11:34] VITALS: BP 125/69
[2025-05-22] MEDS: NOVOLOG FLEXPEN-LOW RESISTANCE SC (11:52)
[2025-05-22 11:54] LABS: Glucose - Point of Care 118 mg/dl (70-99)
--- NOTE | 2025-05-22 12:15 | PTCARENOTE ---
pt VSS, no changes in assessment. PA aware of brief periods of controlled afib. pt asymptomatic. at bedside. ambulating in hallways independently.
[2025-05-22] MEDS: LOPRESSOR 50 MG PO (13:12)
--- NOTE | 2025-05-22 13:43 | PTCARENOTE ---
pt discharged home w/ , discharge instructions reviewed w/ patient and , questions answered. home meds reviewed. pt placed back to bed, V wire cut by MARILEE Segura. sternal aquacel removed. IV and tele dc'd. pt showered independently, dressed
self. education provided on outpatient classes for diabetes. pt left via wheelchair w/ all belongings.
== END 2025-05-22 13:40 | disposition home or self-care (01) | DRG 235 ==
LOC: CVICU 04:44
PROVIDERS: Anesthesiology; Physician Assistant Medical; ADMITTING PHYSICIAN Thoracic Surgery (Cardiothoracic Vascular Surgery); CONSULT PHYSICIAN Internal Medicine Critical Care Medicine; CONSULT PHYSICIAN Nuclear Medicine Nuclear Cardiology; FAMILY PHYSICIAN Family Medicine; REFERRING PHYSICIAN Internal Medicine Cardiovascular Disease
PROC: [UNRECOGNIZED PROCEDURE] (2025-05-18)
PROC: 02100ZC Bypass Coronary Artery, One Artery from Thoracic Artery, Open Approach (ICD-10-PCS; 2025-05-18)
PROC: 02L70CK Occlusion of Left Atrial Appendage with Extraluminal Device, Open Approach (ICD-10-PCS; 2025-05-18)
PROC: B24BZZ4 Ultrasonography of Heart with Aorta, Transesophageal (ICD-10-PCS; 2025-05-18)
PROC: 021109W Bypass Coronary Artery, Two Arteries from Aorta with Autologous Venous Tissue, Open Approach (ICD-10-PCS; 2025-05-18)
PROC: 5A1221Z Performance of Cardiac Output, Continuous (ICD-10-PCS; 2025-05-18)
PROC: 06BP4ZZ Excision of Right Saphenous Vein, Percutaneous Endoscopic Approach (ICD-10-PCS; 2025-05-18)
DX: I25.118 Atherosclerotic heart disease of native coronary artery with other forms of angina pectoris (principal); J95.1 Acute pulmonary insufficiency following thoracic surgery; L76.32 Postprocedural hematoma of skin and subcutaneous tissue following other procedure; D62 Acute posthemorrhagic anemia; I30.8 Other forms of acute pericarditis; J98.11 Atelectasis; I48.0 Paroxysmal atrial fibrillation; R00.1 Bradycardia, unspecified; I10 Essential (primary) hypertension; E78.00 Pure hypercholesterolemia, unspecified; E11.40 Type 2 diabetes mellitus with diabetic neuropathy, unspecified; E83.118 Other hemochromatosis; I34.81 Nonrheumatic mitral (valve) annulus calcification; I34.0 Nonrheumatic mitral (valve) insufficiency; Y83.2 Surgical operation with anastomosis, bypass or graft as the cause of abnormal reaction of the patient, or of later complication, without mention of misadventure at the time of the procedure; Z85.820 Personal history of malignant melanoma of skin; Z79.4 Long term (current) use of insulin
CPT/HCPCS: 36415; 71045; 71046; 80048; 80053; 81003; 81015; 82248; 82330; 82565; 82805; 82810; 82947; 82962; 83036; 83735; 84132; 84302; 84520; 85014; 85018; 85025; 85027; 85049; 85610; 85730; 86850; 86900; 86901; 86920; 87070; 93005; 93308; 93880; 94002; C1713; P9045

== ENCOUNTER 2025-06-27 10:03 | Outpatient (RCR) | payer MEDICARE, OTHER, SELFPAY ==
[2025-06-24 14:40] LABS: Glucose - Point of Care 167 mg/dl (70-99)
[2025-06-24 15:26] LABS: Glucose - Point of Care 137 mg/dl (70-99)
[2025-06-27 08:22] LABS: Glucose - Point of Care 218 mg/dl (70-99)
[2025-06-27 09:13] LABS: Glucose - Point of Care 189 mg/dl (70-99)
== END 2025-06-27 23:59 | disposition home or self-care (01) ==
LOC: CRHB 10:03
PROVIDERS: ATTENDING PHYSICIAN Internal Medicine Cardiovascular Disease
DX: I25.10 Atherosclerotic heart disease of native coronary artery without angina pectoris (principal); Z95.1 Presence of aortocoronary bypass graft
CPT/HCPCS: 82962; G0422; G0423

== ENCOUNTER → 2025-07-11 09:29 | Outpatient (REF) | payer MEDICARE, OTHER, SELFPAY ==
--- NOTE | 2025-06-08 14:12 | PN.DIAED02 ---
Referral
DSME Class Series Code: [id number]
Referred For: Diabetes Self-Management Training, Medical Nutrition Therapy, Self-Blood Glucose Monitoring, Long-Term Complication Instruction, Accute Complication Instruction, Continuous Glucose Monitoring, Medication management, Insulin
Instruction, Care Coordination, Disease Management
PHI Release Authorization Form Signed: Yes
Demographic
(1) Type 2 diabetes mellitus with other specified complication
Status: Chronic
Qualifiers:
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
Code(s): E11.69 - Type 2 diabetes mellitus with other specified complication
Patient's primary language-: Korean
Education: Advanced college degree
Occupation: Self-employed
Hours Worked/Week: > 40
- Social
Primary Support Person: Self & spouse
Primary Care Takers: Self & spouse
Living Arrangements: Self & spouse, Family
- Learning Methods
Preferred Method: Video
Barriers to Learning: None
Glycemic Control
- Blood Glucose Monitoring Assessment
Blood glucose monitoring at home: Yes
Monitor Brands: [employer] (JOANNE 3 CGM WITH READER)
Frequency: >4x per day
Time: fasting, before breakfast, after breakfast, before lunch, after lunch, before dinner, after dinner, bedtime, 12 AM, 3 AM, Other
- Hypoglycemia Assessment
Patient carries glucose source: Yes
Patient experiences hypoglycemia: Yes
Frequency: 7 or more times per week
Treatment: juice
Time: before breakfast, 12 AM, 3 AM
Patient has required treatment by others: No
History of Hypoglycemia Unawareness: Yes ( AWARE, TITRATING DOSE ON TOUJEO)
- Blood Glucose Monitoring Results
Source: meter
- Hemoglobin A1c
Date: 05/20/25
A1C Percentage (%): 8.6
Medical History of Diabetes
Family Diabetes History: Grandmother
Previous Diabetes Education: No
How long ago?: 7-12 mo. ago (AT MD OFFICE)
Previous visit with Dietitian: No
Complications/Comorbidity/Specialist: Heart Disease (ASA 81 MG QDELIQUIS 5 MG BID), Hypertension (METOPROLOL SUCCINATE ER 100 MG QD. ), Hyperlipidemia (ATORVASTATIN 40 MG QD), Metabolic (DM2: JARDIANCE 25 MG QD, TOUJEO U300 39 U AM, 30 U PM; LISPRO
TID W/ MEALS (117-150 1 UNIT, 150-200 2 U, 201-250 3U) MFN 1000 MG AM), Other / symptoms (FLUID AROUND HEART: COLCHICINE 0.3 MG BID X 90 DAYS)
Current Home Medication
- Insulin Management
Patient adjusts own insulin dosages: Yes (SEE SLIDING SCALE FOR LISPRO)
Patient has access to glucagon: Yes (GLUCOSE TABLETS)
Measures
- Anthropometrics
Height: 6 ft 4 in
Actual Weight: 207 lb 12.8 oz
- Blood Pressure / Pulse
Blood pressure: 117/72
Pulse: 64
- Diabetes Management
Medical Management for Diabetes: Complete physical exam (02/10/2025), Dental exam (01/03/2025), Dilated eye exam (07/13/2024)
Self-Care
- Tobacco Usage
Do you now, or have you ever smoked?: Never smoked
- Alcohol & Drugs Usage
Drinks Alcohol: Yes
Amount/day: 1-2 drinks per day
- Meals & Dining
Meals & Dining: Patient skips meals: No, Food Intolerance / Allergy: No, Cultural / Anabaptism Dietary Needs: No
Primary Food Kick Plate Installer: Spouse
Primary Coat Joiner: Spouse
Dining Out Frequency: 1-3x per week
- Physical Activity
Physical Limitation: Yes (S/P CARDIAC SURGERY IN APRIL)
Patient participates in physical Activity: Yes
Activity Types: walking (5K PER DAY IN 2 SEPARATE INSTANCES)
Duration: > 50 minutes
Frequency: 3-5x per week
- Patient-Self Assessment
Diabetes Knowledge: Fair
Feelings About Diabetes: Acceptance
General Health: Good
Importance of Health: Extremely
Stress Level: Low
Diabetes Interferes With:: Nothing
Barriers to Diabetes Management: Nothing
Depression Survey Score: 3
- Diabetes Identification
Carries Diabetes Identification: No
Diabetes Identification Information Provided: Yes
Care Plan
- Education Needs
Patient Education Needs: Diabetes disease process, Chronic complications, Acute complications, Medication, Monitoring, Psychosocial Adjustment, Nutritional management, Goal setting & problem solving
Recommended Diabetes Training Program based on assessment: Outpatient Diabetes Education Program
- Plan of Care
Plan of Care:
06/08/2025 DSME INITIAL CONSULTATION
Met with participant today for registration and initiation of Diabetes Self-management. 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 His last HbA1c is 8.6% on 05/20/2025. He
admits prior to inpatient stay he was taking his medication incorrectly, only when CGM alarms were triggered.
I reviewed and provided diabetes management booklet. We reviewed complications of diabetes, fasting and 2 hour post prandial glucose goals, signs and symptoms of hyperglycemia, signs and symptoms of hypoglycemia, and hypoglycemia protocol. We
discussed exercise recommendations of at least 30 minutes per day to help lower glucose levels. He currently walks 5K a day total, walks twice a day. Will participate in cardiac rehab late May.
We reviewed his Free [employer] in [employer] reader. I showed him how to read the reports for EAG (7 day: 147; 90 day:184), TIR (7 day 73%; 90 day 55%). 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 His provider is aware, recently
reduces his PM dose of Toujeo from 39 to 30. He also takes 39 units in AMWe reviewed hypoglycemia protocol, I provided information on Gvoke pen to discuss Rx with provider. He eats dinner at 6pm, takes Toujeo and 7:30PM and goes to bed directly
after. He wakes up and eats at approximately 6AM. I recommended he have a snack prior to bed to help stave off early AM hypglycemia while he titrates dose with provider. Discussed non fat yogurt with nuts, berries or non fat cheese and crackers.
He is prescribed Lispro, states his home visiting nurse assisted him with a sliding scale. MD is aware and OK with dosing. He takes 1 unit if BS is 117-149, 2 units it 150-200, 3 units if 200+. States he rarely has to take mealtime insulin.
I also provided education that he should check his glucose prior to exercise, especially cardiac rehab. If his blood sugar is less than 100 he should eat to prevent low BS from the exercise.
He also takes additional supplements: Ageless Male 1 tab AM, Coenzyme Q10 300 mg QD, Focus Factor 1 tablet AM, Glucosamine Chondroitin 1 capsule QD. I educated that Metformin can deplete B vitamins, discuss supplementation with provider.
I provided insurance billing code and advised him to contact his health plan to discuss coverage and cost. He verbalized acknowledgement and states the cost is not an issue.
He has phone # for office if additional needs arise prior to class.
--- NOTE | 2025-06-08 14:51 | PN.DIAED04 ---
Education Record
- Education Record
Class Attended: Other (DSME INITIAL MEETING 06/08/2025)
DSME Class Series Code: [id number]
Instructor: Nurse Practitioner (TETO Durbin)
Pre-Program Knowledge: Needs review / Assistance
Pre-Test Score (%): 63
Goals
- Goal 1
Being Active: Exercise more often
Goals To Be Evaluated: Exercise more often
- Goal 2
Healthy Eating: Make better food choices
Goals To Be Evaluated: Make better food choices
- Goal 3
Monitoring: Check blood sugar 4x daily-b4 breakfast/b4 lunch/b4 dinner/at bedtime
Goals To Be Evaluated: Check blood sugar 4x/day
--- NOTE | 2025-07-12 12:14 | PN.DIAED14 ---
This is to notify you that your patient with diabetes, DAI CASTRO ( 1950), has enrolled in our diabetes self-management classes that are being held at [facility].
These classes will include an introduction to diabetes, diet, medication, exercise and prevention of complications. At the end of our class series, you will receive a report of your patient's participation and progress for your records.
Please contact me at the Diabetes Center, , if there is any particular information regarding your patient that might be helpful to me.
Sincerely,
Dread IRENE-LAKESHA, [facility]
--- NOTE | 2025-07-12 12:14 | PN.DIAED04 ---
Education Record
- Education Record
Class Attended: Class 1
DSME Class Series Code: [id number]
Instructor: Registered Nurse (Samantha Blanton RN)
Class Curriculum:
Outpatient Diabetes Education Program:
Class 1 (120 minutes)
Describe the diabetes disease process and treatment options
Diabetes management
Develop personal strategies to promote health and behavior change
Integrate psychosocial adjustment for daily living
Monitor blood glucose and other parameters. Interpret and use the results for self-management decision making
Prevent, detect, and treat acute complications
Class Length (mins): 120
Post-Class 1 Test Score (%): 88
== END ==
LOC: DES 09:29
PROVIDERS: ATTENDING PHYSICIAN Family Medicine
DX: E11.40 Type 2 diabetes mellitus with diabetic neuropathy, unspecified (principal)
CPT/HCPCS: 99078

== ENCOUNTER → 2025-07-18 08:29 | Outpatient (REF) | payer MEDICARE, OTHER, SELFPAY ==
--- NOTE | 2025-07-19 09:18 | PN.DIAED04 ---
Education Record
- Education Record
Class Attended: Class 2
DSME Class Series Code: [id number]
Instructor: Registered Dietitian (Zoie Gonzalez, RD, LDN, CDE)
Class Curriculum:
Outpatient Diabetes Education Program:
Class 2 (120 minutes)
Incorporate nutritional management into lifestyle
Understanding nutritional value
Understanding carbohydrate counting
Class Length (mins): 120
== END ==
LOC: DES 08:29
PROVIDERS: ATTENDING PHYSICIAN Family Medicine
DX: E11.40 Type 2 diabetes mellitus with diabetic neuropathy, unspecified (principal)
CPT/HCPCS: 99078

== ENCOUNTER → 2025-07-25 14:49 | Outpatient (REF) | payer MEDICARE, OTHER, SELFPAY ==
--- NOTE | 2025-07-26 13:58 | PN.DIAED04 ---
Education Record
- Education Record
Class Attended: Class 3
DSME Class Series Code: [id number]
Instructor: Registered Dietitian (Zoie Gonzalez, RD, LDN, CDE)
Class Curriculum:
Outpatient Diabetes Education Program:
Class 3 (120 minutes)
Incorporate nutritional management into lifestyle
Class Length (mins): 120
Post-Class 2 & 3 Test Score (%): 100
== END ==
LOC: DES 14:49
PROVIDERS: ATTENDING PHYSICIAN Family Medicine
DX: E11.40 Type 2 diabetes mellitus with diabetic neuropathy, unspecified (principal)
CPT/HCPCS: 99078

== ENCOUNTER 2025-07-29 10:33 | Outpatient (RCR) | payer MEDICARE, OTHER, SELFPAY ==
[2025-06-29 08:05] LABS: Glucose - Point of Care 265 mg/dl (70-99)
[2025-06-29 09:00] LABS: Glucose - Point of Care 240 mg/dl (70-99)
[2025-07-01 08:10] LABS: Glucose - Point of Care 246 mg/dl (70-99)
[2025-07-01 09:08] LABS: Glucose - Point of Care 170 mg/dl (70-99)
[2025-07-04 08:21] LABS: Glucose - Point of Care 189 mg/dl (70-99)
[2025-07-04 09:10] LABS: Glucose - Point of Care 134 mg/dl (70-99)
[2025-07-06 08:07] LABS: Glucose - Point of Care 182 mg/dl (70-99)
[2025-07-06 09:02] LABS: Glucose - Point of Care 163 mg/dl (70-99)
[2025-07-08 08:05] LABS: Glucose - Point of Care 249 mg/dl (70-99)
[2025-07-08 08:58] LABS: Glucose - Point of Care 192 mg/dl (70-99)
[2025-07-11 08:21] LABS: Glucose - Point of Care 168 mg/dl (70-99)
[2025-07-11 09:15] LABS: Glucose - Point of Care 144 mg/dl (70-99)
[2025-07-13 08:16] LABS: Glucose - Point of Care 204 mg/dl (70-99)
[2025-07-13 09:13] LABS: Glucose - Point of Care 152 mg/dl (70-99)
[2025-07-15 08:05] LABS: Glucose - Point of Care 195 mg/dl (70-99)
[2025-07-15 09:00] LABS: Glucose - Point of Care 171 mg/dl (70-99)
== END 2025-07-29 23:59 | disposition home or self-care (01) ==
LOC: CRHB 10:33
PROVIDERS: ATTENDING PHYSICIAN Internal Medicine Cardiovascular Disease
DX: I25.10 Atherosclerotic heart disease of native coronary artery without angina pectoris (principal); Z95.1 Presence of aortocoronary bypass graft (principal)
CPT/HCPCS: 82962; G0422; G0423

== ENCOUNTER → 2025-08-01 09:07 | Outpatient (REF) | payer MEDICARE, OTHER, SELFPAY ==
--- NOTE | 2025-08-02 09:23 | PN.DIAED04 ---
Education Record
- Education Record
Class Attended: Class 4
DSME Class Series Code: [id number]
Instructor: Registered Nurse (Samantha Blanton RN)
Class Curriculum:
Outpatient Diabetes Education Program:
Class 4 (120 minutes)
Develop personal strategies to promote health and behavior change
Incorporate physical activity into lifestyle
Utilize medications safety for maximum therapeutic effectiveness
Understand different medication/insulin mechanism of action
Preparing for travel
Class Length (mins): 120
Post-Class 4 Test Score (%): 93
== END ==
LOC: DES 09:07
PROVIDERS: ATTENDING PHYSICIAN Family Medicine
DX: E11.40 Type 2 diabetes mellitus with diabetic neuropathy, unspecified (principal)
CPT/HCPCS: 99078

== ENCOUNTER → 2025-08-08 08:45 | Outpatient (REF) | payer MEDICARE, OTHER, SELFPAY ==
--- NOTE | 2025-08-09 12:34 | PN.DIAED04 ---
Education Record
- Education Record
Class Attended: Class 5
DSME Class Series Code: [id number]
Instructor: Registered Nurse (Samantha Blanton RN)
Class Curriculum:
Outpatient Diabetes Education Program:
Class 5 (120 minutes)
Prevent, detect, and treat acute complications
Prevent, detect, and treat chronic complications through risk reduction
Develop personal strategies to address psychosocial issues and concerns
Development of diabetes self-management support plan
Letter to physician with DSMS plan attached sent
Class Length (mins): 120
Post-Program Knowledge: Demonstrates competency
Post-Test Score (%): 85
Post-Program Assessment
- Post-Program Assessment
Actual Weight: 207 lb
Blood pressure: 120/70
Post-Program Depression Survey Score: 2
Reviewing Previous Goals?: Yes
Pre-Program Depression Survey Score: 3
- Goals 1 Evaluation
Goals To Be Evaluated: Exercise more often
- Goals 2 Evaluation
Goals To Be Evaluated: Make better food choices
- Goals 3 Evaluation
Goals To Be Evaluated: Check blood sugar 4x/day
--- NOTE | 2025-08-09 12:45 | PN.DIAED16 ---
This is to notify you that your patient with diabetes, DAI CASTRO ( 1950), has attended the entire series of Diabetes Self-Management Education Classes.
Class 1 (120 minutes): Diabetes Overview - monitoring, stress/psychosocial adjustment, support, goal setting
Class 2 (120 minutes): Meal Planning - serving sizes, menu plans
Class 3 (120 minutes): Introduction to Carbohydrate Counting, Analyzing Food Labels
Class 4 (120 minutes): Medication, Exercise and Activity
Class 5 (120 minutes): Sick Day Management, Strategies to Reduce Complications, Problem Solving, Resources
The following behavioral goals were identified:
Goal #1: Exercise more often
Goal #2: Make better food choices
Goal #3: Check blood sugar 4x/day
A follow-up call will be made within three to six months to evaluate attainment of these goals and to check post-program Hemoglobin A1c and overall progress. All class participants are encouraged to contact me if I can be any further assistance in
learning how to manage their diabetes.
Sincerely,
Dread IRENE-, [facility]
== END ==
LOC: DES 08:45
PROVIDERS: ATTENDING PHYSICIAN Family Medicine
DX: E11.40 Type 2 diabetes mellitus with diabetic neuropathy, unspecified (principal)
CPT/HCPCS: 99078

== ENCOUNTER 2025-08-08 10:27 | Outpatient (RCR) | payer MEDICARE, OTHER, SELFPAY | END 2025-08-08 23:59 | disposition home or self-care (01) | LOC: CRHB 10:27 | PROVIDERS: ATTENDING PHYSICIAN Internal Medicine Cardiovascular Disease | DX: Z95.1 Presence of aortocoronary bypass graft (principal) | CPT/HCPCS: G0422; G0423 ==

== ENCOUNTER 2025-09-09 06:33 | Day surgery (SDC) | payer MEDICARE, OTHER, SELFPAY ==
[2025-09-09 07:43] LABS: Glucose - Point of Care 111 mg/dl (70-99)
== END 2025-09-09 09:23 | disposition home or self-care (01) ==
LOC: GI 06:33
PROVIDERS: ATTENDING PHYSICIAN Internal Medicine Gastroenterology
DX: Z12.11 Encounter for screening for malignant neoplasm of colon (principal); D12.2 Benign neoplasm of ascending colon; D12.3 Benign neoplasm of transverse colon; D12.4 Benign neoplasm of descending colon; K63.5 Polyp of colon; K63.89 Other specified diseases of intestine; K57.30 Diverticulosis of large intestine without perforation or abscess without bleeding; Z86.0101 Personal history of adenomatous and serrated colon polyps
CPT/HCPCS: 45385; 82962; 88305

== ENCOUNTER 2025-09-13 07:24 | Day surgery (SDC) | payer MEDICARE, OTHER, SELFPAY ==
[2025-09-13 07:43] VITALS: BMI 26.3
[2025-09-13 07:55] LABS: Glucose - Point of Care 130 mg/dl (70-99)
== END 2025-09-13 09:15 | disposition home or self-care (01) ==
LOC: CATH 07:24
PROVIDERS: ATTENDING PHYSICIAN Internal Medicine Cardiovascular Disease; FAMILY PHYSICIAN Family Medicine; OTHER PHYSICIAN Internal Medicine Cardiovascular Disease
DX: I08.3 Combined rheumatic disorders of mitral, aortic and tricuspid valves (principal); I08.8 Other rheumatic multiple valve diseases; Z79.82 Long term (current) use of aspirin; Z79.899 Other long term (current) drug therapy; Z79.4 Long term (current) use of insulin; Z79.84 Long term (current) use of oral hypoglycemic drugs
CPT/HCPCS: 93312; 93320; 93325; 82962

== ENCOUNTER 2025-09-28 08:51 | Outpatient (RCR) | payer MEDICARE, OTHER, SELFPAY | END 2025-09-28 23:59 | disposition home or self-care (01) | LOC: CRHB 08:51 | PROVIDERS: ATTENDING PHYSICIAN Internal Medicine Cardiovascular Disease | DX: I25.10 Atherosclerotic heart disease of native coronary artery without angina pectoris (principal); Z95.1 Presence of aortocoronary bypass graft | CPT/HCPCS: G0422; G0423 ==